=== PATIENT | female | born 1965 | race Caucasian/White ===

== ENCOUNTER 2016-11-27 19:06 | Emergency (ER) | payer OTHER ==
[~2016-11-27 19:06] MED LIST: 'TENORMIN50 MG PO; ABILIFY10 MG PO; ABILIFY15 MG PO; ALAVERT10 M1 PO; ASCRIPTIN1 TAB PO; ASPIR 8181 MG PO; ATENOLOL25 MG PO; ATENOLOL50 MG PO; ATIVAN1 MG PO; Amitriptyline H10 MG PO; B-121000 MCG PO; BENADRYL25 M1 PO; BENADRYL25 MG PO; BENZTROPINE MESY1 MG PO; CLARITIN10 MG PO; COPPERAS1 CRE PO; CYCLOBENZAPRINE10 MG PO; DOCUSATE SODIU100 M2 PO; DOCUSATE100 MG PO; FENOFIBRATE200 MG PO; FERROUS SULFAT325 M1 PO; FERROUS SULFATE; FISH OIL 10001000 MG PO; FLEXERIL5 MG PO; FLONASE0.05 MG/AC NS; FOLIC ACID1 MG PO; GABAPENTIN TAB600 MG PO; GABAPENTIN600 MG PO; GLIPIZIDE5 MG PO; GLUCOTROL XL2.5 MG PO; IRON325 M2 PO; LANSOPRAZOLE30 M1 PO; LANSOPRAZOLE30 MG PO; LANTUS100 U/ML SC; LOMOTIL 0.025 M1 TA1 PO; LOSARTAN POTASS50 M1 PO; LOVASTATIN20 MG PO; LOVASTATIN40 MG PO; LOVAZA1 GM PO; MEDROL DOSEPAK4 MG PO; METFORMIN1000 MG PO; METFORMIN500 MG PO; MULTI VITAMINS1 TAB PO; MULTIPLE VITAMI1 TA3 PO; NEURONTIN300 MG PO; NORFLEX100 MG PO; OXYCONTIN40 MG PO; PANTOPRAZOLE40 MG PO; PEPCID20 MG PO; PERCOCET 325 MG1 TA7 PO; PREDNICOT20 MG PO; PREDNISONE50 MG PO; PRESERVISION A1 EACH PO; PRESERVISION L1 EACH PO; PRESTIQ PO; PREVACID30 M1 PO; PRILOSEC20 MG PO; ROXICODONE30 MG PO; SYNTHROID0.025 MG PO; TOPAMAX25 M1 PO; TOPAMAX50 MG PO; TOPIRAMATE50 MG PO; TORADOL10 MG PO; TRAMADOL HCL50 MG PO; TRICOR48 MG; TRILIPIX45 M1 PO; ULTRAM50 MG PO; VENLAFAXINE37.5 M1 PO; VIBRAMYCIN100 MG PO; VICO10300 PO; VICO75300 PO; VICODIN 500 MG-1 TAB PO; VICODIN HP 6601 TA1 PO; VICOPROFEN 7.51 TA1 PO; VIT D3 PO; VITAMIN B12 1541 TAB PO; VITAMIN D50000 I2 PO; WELLBUTRIN XL300 MG PO; ZANAFLEX4 M1 PO; ZITHROMAX Z PA250 MG PO; ZOFRAN ODT4 MG PO; ZOFRAN ODT4 MG SL; ZOFRAN4 MG PO; ZOLOFT100 MG PO; Zofran4 MG PO
[2016-11-27 19:35] VITALS: BP 139/83
[2016-11-27 19:53] LABS: BILIRUBIN NEGATIVE (NEGATIVE); BLOOD TRACE-LYSED (NEGATIVE); CLARITY CLEAR (CLEAR); COLOR YELLOW (YELLOW); GLUCOSE 3+ (NEGATIVE); KETONE NEGATIVE (NEGATIVE); LEUKO ESTERASE NEGATIVE (NEGATIVE); NITRITE NEGATIVE (NEGATIVE); PH 7.5 (5.0-9.0); PROTEIN NEGATIVE (NEGATIVE); UROBILINOGEN 0.2 E.U./dl (0.2-1.0)
[2016-11-27 19:53] LABS: BASO # 0.1 10*3/uL (0.0-0.1); BASO % 0.8 % (0.0-1.0); EOS # 0.7 10*3/uL (0.0-0.4); EOS % 5.7 % (1.0-4.0); HEMOGLOBIN 15.4 g/dl (12.0-16.0); IG # 0.2 10*3/uL (0.0-0.1); LYMPH # 2.6 10*3/uL (1.3-4.4); LYMPH % 20.7 % (27.0-41.0); MEAN CELL VOLUME 77.6 fl (81.0-99.0); MEAN CORPUSCULAR HGB 27.2 pg (27.0-31.0); MEAN PLATELET VOLUME 8.6 fl (9.6-12.3); MONO # 0.5 10*3/uL (0.1-1.0); MONO % 4.2 % (3.0-9.0); NEUT # 8.5 10*3/uL (2.3-7.9); NEUT % 67.2 % (47.0-73.0); PLATELET COUNT AUTOMATED 242 10*3/uL (130-400); RED BLOOD COUNT 5.67 10*6/uL (4.10-5.10); WHITE BLOOD COUNT 12.7 10*3/uL (4.8-10.8)
[2016-11-27 20:01] LABS: BACTERIA TRACE; URINE REFLEX COMMENT NO (NO); WBC 0-2 wbc/hpf (0-5); YEAST 2+
[2016-11-27 20:07] LABS: C-REACTIVE PROTEIN 1.52 MG/DL (0-0.3)
[2016-11-27 20:08] LABS: ALBUMIN 3.6 gm/dl (3.1-4.5); ALKALINE PHOSPHATASE 115 U/L (45-117); BILIRUBIN, TOTAL 0.4 mg/dl (0.2-1.0); BUN 9 mg/dl (7-24); CARBON DIOXIDE 24 mmol/L (21-32); CHLORIDE 99 mmol/L (98-107); EST GLOM FILT AFRICAN AMERICAN > 60 ml/min; POTASSIUM 4.1 mmol/L (3.5-5.1); SGOT/AST 16 IU/L (3-35); SGPT/ALT 48 U/L (12-78); SODIUM 135 mmol/L (136-145); TOTAL PROTEIN 7.8 gm/dL (6.4-8.2)
[2016-11-27 20:09] LABS: GLUCOSE 413 mg/dL (65-99)
[2016-11-27] MEDS ORDERED: ZOFRAN ODT4 MG SL (20:20)
== END 2016-11-27 20:20 | disposition home or self-care (01) ==
LOC: ED 19:06
PROVIDERS: Nurse Practitioner Family
DX: K29.00 Acute gastritis without bleeding (principal); F17.200 Nicotine dependence, unspecified, uncomplicated; Z98.890 Other specified postprocedural states; Z79.82 Long term (current) use of aspirin; Z88.0 Allergy status to penicillin; Z88.5 Allergy status to narcotic agent; Z88.8 Allergy status to other drugs, medicaments and biological substances; Z88.6 Allergy status to analgesic agent

== ENCOUNTER 2017-07-01 20:27 | Emergency (ER) | payer OTHER ==
[~2017-07-01] VITALS: Ht 172.7 cm; Wt 90.7 kg
[2017-07-01 20:50] LABS: BILIRUBIN NEGATIVE (NEGATIVE); BLOOD TRACE-INTACT (NEGATIVE); CLARITY SL CLOUDY (CLEAR); COLOR YELLOW (YELLOW); GLUCOSE 3+ (NEGATIVE); KETONE NEGATIVE (NEGATIVE); LEUKO ESTERASE NEGATIVE (NEGATIVE); NITRITE NEGATIVE (NEGATIVE); PROTEIN NEGATIVE (NEGATIVE); SPECIFIC GRAVITY 1.015 (1.005-1.030); UROBILINOGEN 0.2 E.U./dl (0.2-1.0)
[2017-07-01 20:56] LABS: WBC 16-20 wbc/hpf (0-5)
[2017-07-01 20:57] LABS: BACTERIA 3+; URINE REFLEX COMMENT YES (NO)
[2017-07-01 21:31] LABS: BASO # 0.1 10*3/uL (0.0-0.1); BASO % 0.5 % (0.0-1.0); EOS # 0.7 10*3/uL (0.0-0.4); HEMATOCRIT 38.4 % (37.0-47.0); HEMOGLOBIN 13.5 g/dl (12.0-16.0); IG # 0.2 10*3/uL (0.0-0.1); LYMPH # 2.2 10*3/uL (1.3-4.4); LYMPH % 20.3 % (27.0-41.0); MEAN CELL VOLUME 78.7 fl (81.0-99.0); MEAN CORPUSCULAR HGB 27.7 pg (27.0-31.0); MEAN CORPUSCULAR HGB CONC 35.2 g/dl (33.0-37.0); MEAN PLATELET VOLUME 8.7 fl (9.6-12.3); MONO # 0.5 10*3/uL (0.1-1.0); MONO % 4.2 % (3.0-9.0); NEUT # 7.4 10*3/uL (2.3-7.9); NEUT % 67.5 % (47.0-73.0); PLATELET COUNT AUTOMATED 256 10*3/uL (130-400); RED BLOOD COUNT 4.88 10*6/uL (4.10-5.10); RED CELL DISTRI WIDTH 15.5 % (0-14.5); WHITE BLOOD COUNT 10.9 10*3/uL (4.8-10.8)
[2017-07-01 21:47] LABS: ALBUMIN 3.5 gm/dl (3.1-4.5); ALKALINE PHOSPHATASE 141 U/L (45-117); BILIRUBIN, TOTAL 0.4 mg/dl (0.2-1.0); BUN 9 mg/dl (7-24); CARBON DIOXIDE 24 mmol/L (21-32); CHLORIDE 99 mmol/L (98-107); EST GLOM FILT AFRICAN AMERICAN > 60 ml/min; GLUCOSE 343 mg/dL (65-99); POTASSIUM 3.4 mmol/L (3.5-5.1); SGOT/AST 28 IU/L (3-35); SODIUM 135 mmol/L (136-145); TOTAL PROTEIN 7.2 gm/dL (6.4-8.2)
[2017-07-01 22:13] LABS: SGPT/ALT 39 U/L (12-78)
[2017-07-01 23:27] LABS: LA>2 REFLEX 2 HR DRAW NOW
[2017-07-01 23:46] VITALS: BP 169/94
== END 2017-07-02 01:25 | disposition home or self-care (01) ==
LOC: ED 20:27
PROVIDERS: Emergency Medicine
DX: R10.31 Right lower quadrant pain (principal); R11.0 Nausea; R63.0 Anorexia; K59.00 Constipation, unspecified; E16.2 Hypoglycemia, unspecified; E87.6 Hypokalemia; K82.9 Disease of gallbladder, unspecified; R74.8 Abnormal levels of other serum enzymes; J44.9 Chronic obstructive pulmonary disease, unspecified; E11.9 Type 2 diabetes mellitus without complications; I10 Essential (primary) hypertension; F17.200 Nicotine dependence, unspecified, uncomplicated; Z88.0 Allergy status to penicillin; Z88.6 Allergy status to analgesic agent; Z88.8 Allergy status to other drugs, medicaments and biological substances; Z79.899 Other long term (current) drug therapy; Z79.82 Long term (current) use of aspirin

== ENCOUNTER → 2017-08-18 | Outpatient (CLI) | payer OTHER | END | disposition home or self-care (01) | LOC: US 07:38 | DX: K76.0 Fatty (change of) liver, not elsewhere classified (principal); K80.20 Calculus of gallbladder without cholecystitis without obstruction ==

== ENCOUNTER 2017-10-19 15:44 | Emergency (ER) | payer OTHER ==
[~2017-10-19] VITALS: Ht 170.1 cm; Wt 90.7 kg
[2017-10-19 15:52] VITALS: BP 162/98
[2017-10-19 16:17] LABS: BASO # 0.1 10*3/uL (0.0-0.1); BASO % 0.5 % (0.0-1.0); EOS # 0.6 10*3/uL (0.0-0.4); EOS % 5.4 % (1.0-4.0); HEMATOCRIT 40.3 % (37.0-47.0); HEMOGLOBIN 13.9 g/dl (12.0-16.0); MEAN CELL VOLUME 77.4 fl (81.0-99.0); MEAN CORPUSCULAR HGB 26.7 pg (27.0-31.0); MEAN CORPUSCULAR HGB CONC 34.5 g/dl (33.0-37.0); MEAN PLATELET VOLUME 8.3 fl (9.6-12.3); MONO # 0.5 10*3/uL (0.1-1.0); MONO % 4.8 % (3.0-9.0); NEUT # 6.5 10*3/uL (2.3-7.9); NEUT % 60.8 % (47.0-73.0); PLATELET COUNT AUTOMATED 260 10*3/uL (130-400); RED BLOOD COUNT 5.21 10*6/uL (4.10-5.10); RED CELL DISTRI WIDTH 14.7 % (0-14.5); WHITE BLOOD COUNT 10.7 10*3/uL (4.8-10.8)
[2017-10-19 16:33] LABS: ALBUMIN 3.8 gm/dl (3.1-4.5); ALKALINE PHOSPHATASE 88 U/L (45-117); BUN 12 mg/dl (7-24); CHLORIDE 105 mmol/L (98-107); CREATININE 0.68 mg/dL (0.55-1.02); LIPASE 182 U/L (73-393); SGOT/AST 20 IU/L (3-35); SGPT/ALT 43 U/L (12-78); SODIUM 138 mmol/L (136-145); TOTAL PROTEIN 7.4 gm/dL (6.4-8.2)
[2017-10-19 16:40] LABS: BILIRUBIN NEGATIVE (NEGATIVE); BLOOD NEGATIVE (NEGATIVE); CLARITY CLEAR (CLEAR); COLOR YELLOW (YELLOW); GLUCOSE NEGATIVE (NEGATIVE); KETONE NEGATIVE (NEGATIVE); LEUKO ESTERASE NEGATIVE (NEGATIVE); NITRITE NEGATIVE (NEGATIVE); UROBILINOGEN 0.2 E.U./dl (0.2-1.0)
[2017-10-19 16:48] LABS: RBC 0-2 rbc/hpf (0-2)
== END 2017-10-19 19:26 | disposition home or self-care (01) ==
LOC: ED 15:44
PROVIDERS: Physician Assistant
DX: R14.0 Abdominal distension (gaseous) (principal); R10.12 Left upper quadrant pain; G89.29 Other chronic pain; F17.200 Nicotine dependence, unspecified, uncomplicated; Z98.890 Other specified postprocedural states; Z79.899 Other long term (current) drug therapy; Z79.82 Long term (current) use of aspirin; Z88.0 Allergy status to penicillin; Z88.5 Allergy status to narcotic agent; Z88.6 Allergy status to analgesic agent; Z88.8 Allergy status to other drugs, medicaments and biological substances

== ENCOUNTER → 2017-12-22 | Outpatient (CLI) | payer OTHER ==
[2017-12-22 13:03] LABS: BASO # 0.1 10*3/uL (0.0-0.1); BASO % 0.5 % (0.0-1.0); EOS # 0.5 10*3/uL (0.0-0.4); EOS % 3.8 % (1.0-4.0); HEMATOCRIT 40.2 % (37.0-47.0); HEMOGLOBIN 13.6 g/dl (12.0-16.0); LYMPH # 4.3 10*3/uL (1.3-4.4); LYMPH % 33.5 % (27.0-41.0); MEAN CELL VOLUME 78.7 fl (81.0-99.0); MEAN CORPUSCULAR HGB 26.6 pg (27.0-31.0); MEAN CORPUSCULAR HGB CONC 33.8 g/dl (33.0-37.0); MEAN PLATELET VOLUME 8.6 fl (9.6-12.3); MONO # 0.5 10*3/uL (0.1-1.0); MONO % 4.1 % (3.0-9.0); NEUT # 7.4 10*3/uL (2.3-7.9); NEUT % 57.6 % (47.0-73.0); PLATELET COUNT AUTOMATED 297 10*3/uL (130-400); RED BLOOD COUNT 5.11 10*6/uL (4.10-5.10); WHITE BLOOD COUNT 12.8 10*3/uL (4.8-10.8)
[2017-12-22 13:41] LABS: ALBUMIN 3.7 gm/dl (3.1-4.5); BILIRUBIN, DIRECT 0.1 mg/dL (0.0-0.2); TOTAL PROTEIN 6.9 gm/dL (6.4-8.2)
== END | disposition home or self-care (01) ==
LOC: LAB 12:46
PROVIDERS: Internal Medicine Gastroenterology
DX: R11.0 Nausea (principal)

== ENCOUNTER 2018-02-10 13:23 | Emergency (ER) | payer OTHER ==
[~2018-02-10] VITALS: Ht 170.1 cm; Wt 91.2 kg
[2018-02-10 13:28] VITALS: BP 140/80
[2018-02-10] MEDS ORDERED: PREDNISONE10 MG PO (13:53)
[2018-02-10] MEDS ORDERED: ROBITUSSIN DM 105 ML PO (13:53)
[2018-02-10] MEDS ORDERED: CLARITIN10 MG PO (13:53)
[2018-02-10] MEDS ORDERED: FLONASE ALLERG9.9 ML NAS (13:53)
== END 2018-02-10 14:50 | disposition home or self-care (01) ==
LOC: ED 13:23
DX: B34.9 Viral infection, unspecified (principal); I10 Essential (primary) hypertension; J44.9 Chronic obstructive pulmonary disease, unspecified; E11.9 Type 2 diabetes mellitus without complications; F17.200 Nicotine dependence, unspecified, uncomplicated; Z88.0 Allergy status to penicillin; Z88.6 Allergy status to analgesic agent; Z88.8 Allergy status to other drugs, medicaments and biological substances; Z79.899 Other long term (current) drug therapy; Z79.82 Long term (current) use of aspirin

== ENCOUNTER 2019-10-14 00:27 | Emergency (ER) | payer OTHER ==
[~2019-10-14] VITALS: Wt 98.4 kg
--- NOTE | ~2019-10-14 | EKG ---
[place], [place] ELECTROCARDIOGRAM REPORT NAME: KERVIN PERALTA UNIT #: [id number] ROOM: DOCTOR: ML DRAFT REPORT BIRTHDATE: [birth year] [facility] Test Date: 2019-10-14 Test Time: 01:36:02 Pat Name: KERVIN PERALTA Department: Room: Gender: F [employer] Work[employer]: FARAZ : 1965 Requested By: EMILY STODDARD Order Number: [id number] Reading MD: Measurements Intervals [place] Rate: 66 P: 39 [place]: 211 QRS: 17 QRSD: 77 T: 13 QT: 409 QTc: 429 Interpretive Statements Sinus rhythm Prolonged [place] interval Baseline wander in lead(s) V3 No previous ECG available for comparison CM:EKGRPT:ELECTROCARDIOGRAM REPORT [id number] EMILY ROMO DRAFT REPORT EMILY STODDARD DO
[2019-10-14 00:27] VITALS: BP 136/81
[~2019-10-14 00:27] MED LIST changes: +ALOGLIPTIN25 MG PO; +CLINDAMYCIN HC300 MG PO; +DOC-Q-LACE100 MG PO; +ERYPED 200200 MG/51 PO; +FENOFIBRATE MI200 MG PO; +FLONASE ALLERG9.9 ML NAS; +INVOKANA100 M1 PO; +MOVANTIK12.5 MG PO; +PREDNISONE10 MG PO; +PRESERVISION A1 EACH OU; +ROBITUSSIN DM 105 ML PO
[2019-10-14 01:46] LABS: BASO # 0.1 10*3/uL (0.0-0.1); BASO % 0.6 % (0.0-1.0); EOS # 0.6 10*3/uL (0.0-0.4); EOS % 4.7 % (1.0-4.0); HEMATOCRIT 41.6 % (37.0-47.0); HEMOGLOBIN 14.3 g/dl (12.0-16.0); LYMPH # 3.6 10*3/uL (1.3-4.4); LYMPH % 28.5 % (27.0-41.0); MEAN CELL VOLUME 80.6 fl (81.0-99.0); MEAN CORPUSCULAR HGB 27.7 pg (27.0-31.0); MEAN CORPUSCULAR HGB CONC 34.4 g/dl (33.0-37.0); MEAN PLATELET VOLUME 8.9 fl (9.6-12.3); MONO # 0.5 10*3/uL (0.1-1.0); MONO % 4.1 % (3.0-9.0); NEUT # 7.6 10*3/uL (2.3-7.9); NEUT % 61.2 % (47.0-73.0); PLATELET COUNT AUTOMATED 243 10*3/uL (130-400); RED BLOOD COUNT 5.16 10*6/uL (4.10-5.10); WHITE BLOOD COUNT 12.5 10*3/uL (4.8-10.8)
[2019-10-14 02:02] LABS: BILIRUBIN NEGATIVE (NEGATIVE); BLOOD NEGATIVE (NEGATIVE); CLARITY CLEAR (CLEAR); COLOR YELLOW (YELLOW); GLUCOSE NEGATIVE (NEGATIVE); KETONE NEGATIVE (NEGATIVE); LEUKO ESTERASE NEGATIVE (NEGATIVE); NITRITE NEGATIVE (NEGATIVE); SPECIFIC GRAVITY 1.015 (1.005-1.030); UROBILINOGEN 0.2 E.U./dl (0.2-1.0)
[2019-10-14 02:03] LABS: ALBUMIN 3.9 gm/dl (3.1-4.5); ALKALINE PHOSPHATASE 60 U/L (45-117); BUN 14 mg/dl (7-24); CHLORIDE 106 mmol/L (98-107); CREATININE 0.85 mg/dL (0.55-1.02); LIPASE 137 U/L (73-393); POTASSIUM 3.7 mmol/L (3.5-5.1); SGOT/AST 15 IU/L (3-35); SGPT/ALT 28 U/L (12-78); SODIUM 139 mmol/L (136-145); TOTAL PROTEIN 7.5 gm/dL (6.4-8.2)
[2019-10-14 02:09] LABS: BACTERIA TRACE
== END 2019-10-14 04:03 | disposition home or self-care (01) ==
LOC: ED 00:27
PROVIDERS: Emergency Medicine
DX: R10.9 Unspecified abdominal pain (principal); J44.9 Chronic obstructive pulmonary disease, unspecified; E11.9 Type 2 diabetes mellitus without complications; I10 Essential (primary) hypertension; K21.9 Gastro-esophageal reflux disease without esophagitis; E78.00 Pure hypercholesterolemia, unspecified; E11.42 Type 2 diabetes mellitus with diabetic polyneuropathy; F17.200 Nicotine dependence, unspecified, uncomplicated; Z88.0 Allergy status to penicillin; Z88.6 Allergy status to analgesic agent; Z88.8 Allergy status to other drugs, medicaments and biological substances; Z79.899 Other long term (current) drug therapy; Z79.82 Long term (current) use of aspirin

== ENCOUNTER → 2020-01-20 | Outpatient (CLI) | payer OTHER ==
[2020-01-20 12:21] LABS: ALBUMIN 3.8 gm/dl (3.1-4.5); BILIRUBIN, DIRECT < 0.1 mg/dL (0.0-0.2); SGOT/AST 10 IU/L (3-35); SGPT/ALT 26 U/L (12-78); TOTAL PROTEIN 7.4 gm/dL (6.4-8.2)
[2020-01-20 12:29] LABS: ALKALINE PHOSPHATASE 70 U/L (45-117)
[2020-01-21 15:05] LABS: t-TRANSGLUTAMINASE (tTG) IGA <2 U/mL (0-3); t-TRANSGLUTAMINASE (tTG) IgG <2 U/mL (0-5)
== END | disposition home or self-care (01) ==
LOC: LAB 11:03
PROVIDERS: Internal Medicine Gastroenterology
DX: R11.0 Nausea (principal); R10.9 Unspecified abdominal pain

== ENCOUNTER 2020-02-12 07:10 | Emergency (ER) | payer OTHER ==
[~2020-02-12] VITALS: Ht 170.1 cm; Wt 92.5 kg
[2020-02-12 07:41] VITALS: BP 136/80
[2020-02-12] MEDS ORDERED: Motrin,Rufen800 MG PO (10:39)
== END 2020-02-12 10:42 | disposition home or self-care (01) ==
LOC: ED 07:10
DX: S99.911A Unspecified injury of right ankle, initial encounter (principal); E78.00 Pure hypercholesterolemia, unspecified; I10 Essential (primary) hypertension; K21.9 Gastro-esophageal reflux disease without esophagitis; F41.9 Anxiety disorder, unspecified; F32.9 Major depressive disorder, single episode, unspecified; E11.9 Type 2 diabetes mellitus without complications; J44.9 Chronic obstructive pulmonary disease, unspecified; E78.5 Hyperlipidemia, unspecified; Z88.5 Allergy status to narcotic agent; Z88.0 Allergy status to penicillin; Z79.899 Other long term (current) drug therapy; Z88.8 Allergy status to other drugs, medicaments and biological substances; Z79.82 Long term (current) use of aspirin; W10.9XXA Fall (on) (from) unspecified stairs and steps, initial encounter; Y93.89 Activity, other specified; Y92.009 Unspecified place in unspecified non-institutional (private) residence as the place of occurrence of the external cause; Y99.8 Other external cause status

== ENCOUNTER 2020-05-12 17:28 | Inpatient (IN) | payer OTHER ==
[~2020-05-12] VITALS: Wt 96.2 kg
[~2020-05-12 17:28] MED LIST changes: +Motrin,Rufen800 MG PO
--- NOTE | 2020-05-12 17:42 | NUR ---
BROUGHT TO ROOM 12 VIA WC FROM CHRISTY, EKG AT BEDSIDE
[2020-05-12 17:44] VITALS: BP 130/66
--- NOTE | 2020-05-12 17:52 | NUR ---
LABS DRAWN WITH IV START AND HANDED TO PHLEBOTOMOST AT BEDSIDE
[2020-05-12] MEDS ORDERED: RA FISH OIL 1,1 EACH PO (17:54)
[2020-05-12] MEDS ORDERED: VENTOLIN 02.5 MG/3 M INH (17:55)
[2020-05-12] MEDS ORDERED: FLOVENT HFA12 G1 INH (17:55)
[2020-05-12] MEDS ORDERED: BASAG SOL SC (17:55)
[2020-05-12] MEDS ORDERED: LACTULOSE10 GM/15 M PO (17:56)
[2020-05-12] MEDS ORDERED: PROVENTIL HFA6.7 GM INH (17:56)
[2020-05-12] MEDS ORDERED: VITAMIN E100 UNI1 PO (17:57)
[2020-05-12 18:05] LABS: BASO # 0.1 10*3/uL (0.0-0.1); BASO % 0.5 % (0.0-1.0); EOS # 0.5 10*3/uL (0.0-0.4); EOS % 3.7 % (1.0-4.0); HEMATOCRIT 41.3 % (37.0-47.0); LYMPH # 2.2 10*3/uL (1.3-4.4); LYMPH % 16.3 % (27.0-41.0); MEAN CELL VOLUME 80.4 fl (81.0-99.0); MEAN CORPUSCULAR HGB 27.2 pg (27.0-31.0); MEAN CORPUSCULAR HGB CONC 33.9 g/dl (33.0-37.0); MEAN PLATELET VOLUME 8.7 fl (9.6-12.3); MONO # 0.7 10*3/uL (0.1-1.0); MONO % 5.3 % (3.0-9.0); NEUT # 9.7 10*3/uL (2.3-7.9); NEUT % 73.4 % (47.0-73.0); PLATELET COUNT AUTOMATED 260 10*3/uL (130-400); RED BLOOD COUNT 5.14 10*6/uL (4.10-5.10); RED CELL DISTRI WIDTH 13.5 % (0-14.5); WHITE BLOOD COUNT 13.3 10*3/uL (4.8-10.8)
[2020-05-12 18:17] LABS: ACT PARTIAL THROMBO TIME 28.2 SECONDS (20.0-32.1)
[2020-05-12 18:22] LABS: ALBUMIN 3.8 gm/dl (3.1-4.5); ALKALINE PHOSPHATASE 65 U/L (45-117); BUN 16 mg/dl (7-24); CHLORIDE 107 mmol/L (98-107); CREATININE 0.82 mg/dL (0.55-1.02); POTASSIUM 3.4 mmol/L (3.5-5.1); SGOT/AST 10 IU/L (3-35); SGPT/ALT 22 U/L (12-78); SODIUM 137 mmol/L (136-145)
[2020-05-12 18:29] LABS: TROPONIN I < 0.015 ng/ml (<0.045)
--- NOTE | 2020-05-12 18:29 | NUR ---
PATIENT HAS NO NEEDS AT THIS TIME. SHE IS WATCHING TV AND TALKING ON HER CELL PHONE.
--- NOTE | 2020-05-12 18:59 | NUR ---
PATIENT WANTS TO GO HOME, DR. AGUILAR AWARE
--- NOTE | 2020-05-12 19:20 | NUR ---
PATIENT STATES AT THIS TIME SHE DOES NOT WANT TO BE ADMITTED AND WANTS TO SIGN OUT AMA. RESIDENT DR SNYDER NOTIFIED OF THIS AT THIS TIME.
--- NOTE | 2020-05-12 19:21 | NUR ---
The patient, KERVIN PERALTA, 55, 65, [id number], [id number], presented to the Emergency Department at 1729. The patient's Chief Complaint was CHEST PAIN. The patient subsequently left "Against Medical Advice" at 1930. Treatment completed included EXAM,VITALS,LABS,EKG,XRAY . Possible complications and consequences of not following medical advice were clearly explained to the patient by Dr. AGUILAR, and RODRIGO NAVARRETE RN. Assessment of the patient's competence, for making the decision to refuse completion of previously requested exam and treatment, includes alert and oriented. Attempts WERE made to get self involved in persuading the patient to accept, TASH Mohr DO, the physician's recommendations. Discussion included SIGNING OUT AMA . The patient's response was LEAVING AMA . Family/friends who witnessed the discussion includes PATIENT . Signatures WERE requested. The patient DID sign the chart; this was witnessed by RODRIGO NAVARRETE RN. The patient's reason for departing, prior to completion of treatment was "refuses to be admitted". The patient's disposition is dc against medical advice, to the care of self. Arrangements have been made for the ED staff to "Call Back" the patient the following day, to inquire about the patient's medical status and encourage KERVIN PERALTA, to seek medical attention, if this has not been completed. RODRIGO NAVARRETE.
== END 2020-05-12 19:46 | disposition left against medical advice (07) | DRG 203 ==
LOC: ED 17:28 → EDHOLD 18:57 → ED 18:59 → EDHOLD 19:17
PROVIDERS: Emergency Medicine; ADMIT Internal Medicine
DX: R07.9 Chest pain, unspecified (principal); Z53.29 Procedure and treatment not carried out because of patient's decision for other reasons; Z88.0 Allergy status to penicillin; Z88.5 Allergy status to narcotic agent; Z88.8 Allergy status to other drugs, medicaments and biological substances; Z82.49 Family history of ischemic heart disease and other diseases of the circulatory system; Z83.3 Family history of diabetes mellitus; Z83.6 Family history of other diseases of the respiratory system; Z79.899 Other long term (current) drug therapy

== ENCOUNTER → 2020-07-29 | Outpatient (CLI) | payer OTHER ==
[~2020-07-29] MED LIST changes: +BASAG SOL SC; +FLOVENT HFA12 G1 INH; +LACTULOSE10 GM/15 M PO; +PROVENTIL HFA6.7 GM INH; +RA FISH OIL 1,1 EACH PO; +VENTOLIN 02.5 MG/3 M INH; +VITAMIN E100 UNI1 PO
== END | disposition home or self-care (01) ==
LOC: RAD 14:19
PROVIDERS: ATTEND Emergency Medicine
DX: M47.812 Spondylosis without myelopathy or radiculopathy, cervical region (principal); M48.02 Spinal stenosis, cervical region; M85.88 Other specified disorders of bone density and structure, other site; M25.78 Osteophyte, vertebrae

== ENCOUNTER 2020-08-09 14:58 | Emergency (ER) | payer OTHER ==
[~2020-08-09] VITALS: Ht 170.1 cm; Wt 93.0 kg
[2020-08-09 15:02] VITALS: BP 156/76
[2020-08-09 16:07] LABS: BASO # 0.1 10*3/uL (0.0-0.1); BASO % 0.6 % (0.0-1.0); EOS # 0.5 10*3/uL (0.0-0.4); EOS % 6.1 % (1.0-4.0); HEMATOCRIT 38.9 % (37.0-47.0); LYMPH # 2.1 10*3/uL (1.3-4.4); LYMPH % 23.8 % (27.0-41.0); MEAN CELL VOLUME 78.1 fl (81.0-99.0); MEAN CORPUSCULAR HGB 26.5 pg (27.0-31.0); MEAN CORPUSCULAR HGB CONC 33.9 g/dl (33.0-37.0); MEAN PLATELET VOLUME 8.6 fl (9.6-12.3); MONO # 0.4 10*3/uL (0.1-1.0); MONO % 4.7 % (3.0-9.0); NEUT # 5.6 10*3/uL (2.3-7.9); NEUT % 64.2 % (47.0-73.0); PLATELET COUNT AUTOMATED 164 10*3/uL (130-400); RED BLOOD COUNT 4.98 10*6/uL (4.10-5.10); RED CELL DISTRI WIDTH 14.5 % (0-14.5); WHITE BLOOD COUNT 8.7 10*3/uL (4.8-10.8)
[2020-08-09] MEDS ORDERED: ZITHROMAX250 MG PO (16:19)
[2020-08-09] MEDS ORDERED: ROBITUSSIN DM 105 ML PO (16:19)
[2020-08-09 16:22] LABS: ALBUMIN 3.5 gm/dl (3.1-4.5); ALKALINE PHOSPHATASE 85 U/L (45-117); BUN 15 mg/dl (7-24); CHLORIDE 108 mmol/L (98-107); CREATININE 0.84 mg/dL (0.55-1.02); POTASSIUM 3.7 mmol/L (3.5-5.1); SGOT/AST 8 IU/L (3-35); SGPT/ALT 24 U/L (12-78); SODIUM 138 mmol/L (136-145); TOTAL PROTEIN 6.9 gm/dL (6.4-8.2)
== END 2020-08-09 16:59 | disposition home or self-care (01) ==
LOC: ED 14:58
PROVIDERS: Nurse Practitioner Family
DX: J20.9 Acute bronchitis, unspecified (principal); F17.200 Nicotine dependence, unspecified, uncomplicated; Z88.0 Allergy status to penicillin; Z88.6 Allergy status to analgesic agent; Z88.8 Allergy status to other drugs, medicaments and biological substances; Z79.899 Other long term (current) drug therapy; Z79.82 Long term (current) use of aspirin; Z79.4 Long term (current) use of insulin

== ENCOUNTER → 2020-10-02 | Outpatient (CLI) | payer OTHER ==
[~2020-10-02] MED LIST changes: +ZITHROMAX250 MG PO
== END | disposition home or self-care (01) ==
LOC: RAD 13:11
PROVIDERS: ATTEND Physician Assistant
DX: M25.561 Pain in right knee (principal)

== ENCOUNTER 2020-11-04 12:46 | Emergency (ER) | payer OTHER ==
[~2020-11-04] VITALS: Ht 170.1 cm; Wt 94.3 kg
[2020-11-04 13:02] VITALS: BP 156/76
[2020-11-04] MEDS ORDERED: MEDROL DOSEPAK4 MG PO (15:08)
== END 2020-11-04 15:19 | disposition home or self-care (01) ==
LOC: ED 12:46
DX: S16.1XXA Strain of muscle, fascia and tendon at neck level, initial encounter (principal); Z88.0 Allergy status to penicillin; Z88.5 Allergy status to narcotic agent; Z88.8 Allergy status to other drugs, medicaments and biological substances; Z79.899 Other long term (current) drug therapy; Z79.4 Long term (current) use of insulin; V89.2XXA Person injured in unspecified motor-vehicle accident, traffic, initial encounter; Y93.89 Activity, other specified; Y92.89 Other specified places as the place of occurrence of the external cause; Y99.8 Other external cause status

== ENCOUNTER → 2021-01-28 | Outpatient (CLI) | payer OTHER ==
[2021-01-28 16:01] LABS: BASO # 0.1 10*3/uL (0.0-0.1); BASO % 0.5 % (0.0-1.0); EOS # 0.6 10*3/uL (0.0-0.4); EOS % 5.5 % (1.0-4.0); HEMATOCRIT 40.1 % (37.0-47.0); LYMPH # 2.9 10*3/uL (1.3-4.4); LYMPH % 26.1 % (27.0-41.0); MEAN CELL VOLUME 79.6 fl (81.0-99.0); MEAN CORPUSCULAR HGB 28.4 pg (27.0-31.0); MEAN CORPUSCULAR HGB CONC 35.7 g/dl (33.0-37.0); MEAN PLATELET VOLUME 8.5 fl (9.6-12.3); MONO # 0.6 10*3/uL (0.1-1.0); MONO % 5.1 % (3.0-9.0); NEUT # 6.8 10*3/uL (2.3-7.9); NEUT % 62.1 % (47.0-73.0); PLATELET COUNT AUTOMATED 206 10*3/uL (130-400); RED BLOOD COUNT 5.04 10*6/uL (4.10-5.10); RED CELL DISTRI WIDTH 14.1 % (0-14.5)
[2021-01-28 16:31] LABS: BODY FLUID WBC 106 /uL
[2021-01-28 17:17] LABS: BF LYMPHOCYTES 9 %; BF MACROPHAGES 87 %; BF NEUTROPHILS 4 %
[2021-01-29 11:07] LABS: ACID FAST SPEC PROCESSING Direct Inoculation (.)
[2021-03-13 07:06] LABS: ACID FAST CULTURE Negative (.)
== END | disposition home or self-care (01) ==
LOC: LAB 12:31 → RAD 12:31
PROVIDERS: ATTEND Orthopaedic Surgery
DX: M17.12 Unilateral primary osteoarthritis, left knee (principal); M16.0 Bilateral primary osteoarthritis of hip; M25.762 Osteophyte, left knee; M25.462 Effusion, left knee; M51.37 Other intervertebral disc degeneration, lumbosacral region; Z98.890 Other specified postprocedural states

== ENCOUNTER 2021-02-27 11:00 | Emergency (ER) | payer OTHER ==
[~2021-02-27] VITALS: Ht 170.1 cm; Wt 91.2 kg
[2021-02-27 11:22] VITALS: BP 147/74
[2021-02-27 12:04] LABS: BASO # 0.1 10*3/uL (0.0-0.1); BASO % 0.8 % (0.0-1.0); EOS # 0.4 10*3/uL (0.0-0.4); EOS % 4.9 % (1.0-4.0); HEMATOCRIT 40.7 % (37.0-47.0); LYMPH # 2.2 10*3/uL (1.3-4.4); LYMPH % 27.8 % (27.0-41.0); MEAN CELL VOLUME 80.3 fl (81.0-99.0); MEAN CORPUSCULAR HGB 28.4 pg (27.0-31.0); MEAN CORPUSCULAR HGB CONC 35.4 g/dl (33.0-37.0); MEAN PLATELET VOLUME 8.5 fl (9.6-12.3); MONO # 0.4 10*3/uL (0.1-1.0); MONO % 5.1 % (3.0-9.0); NEUT # 4.8 10*3/uL (2.3-7.9); NEUT % 60.5 % (47.0-73.0); PLATELET COUNT AUTOMATED 154 10*3/uL (130-400); RED BLOOD COUNT 5.07 10*6/uL (4.10-5.10); RED CELL DISTRI WIDTH 14.6 % (0-14.5); WHITE BLOOD COUNT 7.9 10*3/uL (4.8-10.8)
[2021-02-27 12:20] LABS: ALBUMIN 3.6 gm/dl (3.1-4.5); ALKALINE PHOSPHATASE 84 U/L (45-117); BUN 9 mg/dl (7-24); CHLORIDE 104 mmol/L (98-107); CREATININE 0.74 mg/dL (0.55-1.02); POTASSIUM 3.6 mmol/L (3.5-5.1); SGOT/AST 14 IU/L (3-35); SGPT/ALT 32 U/L (12-78); SODIUM 135 mmol/L (136-145); TOTAL PROTEIN 6.8 gm/dL (6.4-8.2)
== END 2021-02-27 13:23 | disposition home or self-care (01) ==
LOC: ED 11:00
PROVIDERS: Student in an Organized Health Care Education/Training Program
DX: G62.9 Polyneuropathy, unspecified (principal); Z88.0 Allergy status to penicillin; Z88.5 Allergy status to narcotic agent; Z88.8 Allergy status to other drugs, medicaments and biological substances; Z79.899 Other long term (current) drug therapy; Z79.4 Long term (current) use of insulin; Z98.890 Other specified postprocedural states

== ENCOUNTER → 2021-09-02 | Outpatient (CLI) | payer OTHER | END | disposition home or self-care (01) | LOC: RAD 11:27 | PROVIDERS: ATTEND Physician Assistant | DX: M25.78 Osteophyte, vertebrae (principal); M54.6 Pain in thoracic spine ==

== ENCOUNTER → 2022-05-23 | Outpatient (CLI) | payer OTHER | END | disposition home or self-care (01) | LOC: RAD 16:30 | PROVIDERS: ATTEND Physician Assistant | DX: M47.812 Spondylosis without myelopathy or radiculopathy, cervical region (principal); M48.02 Spinal stenosis, cervical region; M25.78 Osteophyte, vertebrae ==

== ENCOUNTER 2023-03-09 16:31 | Emergency (ER) | payer OTHER ==
[~2023-03-09] VITALS: Ht 170.1 cm; Wt 93.4 kg
[2023-03-09 16:43] VITALS: BP 116/59
[2023-03-09 17:14] LABS: BASO % 0.1 % (0.0-1.0); EOS # 0.1 10*3/uL (0.0-0.4); EOS % 0.9 % (1.0-4.0); HEMATOCRIT 38.7 % (37.0-47.0); LYMPH # 0.5 10*3/uL (1.3-4.4); LYMPH % 6.5 % (27.0-41.0); MEAN CELL VOLUME 81.5 fl (81.0-99.0); MEAN CORPUSCULAR HGB 27.6 pg (27.0-31.0); MEAN CORPUSCULAR HGB CONC 33.9 g/dl (33.0-37.0); MEAN PLATELET VOLUME 9.1 fl (9.6-12.3); MONO # 0.3 10*3/uL (0.1-1.0); MONO % 3.7 % (3.0-9.0); NEUT # 6.9 10*3/uL (2.3-7.9); NEUT % 87.8 % (47.0-73.0); PLATELET COUNT AUTOMATED 130 10*3/uL (130-400); RED BLOOD COUNT 4.75 10*6/uL (4.10-5.10); RED CELL DISTRI WIDTH 14.2 % (0-14.5); WHITE BLOOD COUNT 7.8 10*3/uL (4.8-10.8)
[2023-03-09 17:23] LABS: ALKALINE PHOSPHATASE 78 U/L (46-116); BUN 14 mg/dl (9-23); CHLORIDE 100 mmol/L (98-107); POTASSIUM 3.8 mmol/L (3.4-5.1); SGPT/ALT 21 U/L (10-49); TOTAL PROTEIN 6.1 gm/dL (6.0-8.0)
[2023-03-09 17:48] LABS: BILIRUBIN Negative (Negative); BLOOD Negative (Negative); CLARITY Clear (Clear); COLOR Yellow (Yellow); GLUCOSE 3+ (Negative); KETONE Negative (Negative); LEUKO ESTERASE Negative (Negative); NITRITE Negative (Negative); PH 5.5 (4.5-8.0); SPECIFIC GRAVITY >= 1.030 (1.001-1.030)
[2023-03-09 17:57] LABS: BACTERIA TRACE; MUCOUS 1+; WBC 0-2 wbc/hpf (0-5)
== END 2023-03-09 23:29 | disposition home or self-care (01) ==
LOC: ED 16:31
PROVIDERS: Emergency Medicine
DX: E11.65 Type 2 diabetes mellitus with hyperglycemia (principal); F17.200 Nicotine dependence, unspecified, uncomplicated; Z79.899 Other long term (current) drug therapy; Z88.0 Allergy status to penicillin; Z88.8 Allergy status to other drugs, medicaments and biological substances

== ENCOUNTER → 2023-04-20 | Outpatient (CLI) | payer OTHER | END | disposition home or self-care (01) | LOC: WOUNDCARE 01:29 | PROVIDERS: ATTEND Nurse Practitioner Family | DX: T25.321A Burn of third degree of right foot, initial encounter (principal); T31.0 Burns involving less than 10% of body surface; E11.9 Type 2 diabetes mellitus without complications; E78.49 Other hyperlipidemia; E03.8 Other specified hypothyroidism; I87.2 Venous insufficiency (chronic) (peripheral); E78.5 Hyperlipidemia, unspecified; E03.9 Hypothyroidism, unspecified; F17.200 Nicotine dependence, unspecified, uncomplicated; Z79.84 Long term (current) use of oral hypoglycemic drugs; Z71.6 Tobacco abuse counseling; Z79.82 Long term (current) use of aspirin; X08.8XXD Exposure to other specified smoke, fire and flames, subsequent encounter ==

== ENCOUNTER → 2023-04-27 | Outpatient (CLI) | payer OTHER | LOC: WOUNDCARE 00:36 | PROVIDERS: ATTEND Nurse Practitioner Family | DX: T25.321D Burn of third degree of right foot, subsequent encounter (principal); E78.49 Other hyperlipidemia; E03.8 Other specified hypothyroidism; I10 Essential (primary) hypertension; I87.2 Venous insufficiency (chronic) (peripheral); F17.200 Nicotine dependence, unspecified, uncomplicated; Z71.6 Tobacco abuse counseling; X08.8XXD Exposure to other specified smoke, fire and flames, subsequent encounter ==

== ENCOUNTER → 2023-05-02 | Outpatient (CLI) | payer OTHER | END | disposition home or self-care (01) | LOC: US 08:00 | PROVIDERS: ATTEND Nurse Practitioner Family | DX: I87.2 Venous insufficiency (chronic) (peripheral) (principal); E11.621 Type 2 diabetes mellitus with foot ulcer ==

== ENCOUNTER → 2023-05-04 | Outpatient (CLI) | payer OTHER | END | disposition home or self-care (01) | LOC: WOUNDCARE | PROVIDERS: ATTEND Nurse Practitioner Family | DX: T25.321D Burn of third degree of right foot, subsequent encounter (principal); T31.0 Burns involving less than 10% of body surface; E78.49 Other hyperlipidemia; E03.8 Other specified hypothyroidism; I87.2 Venous insufficiency (chronic) (peripheral); F17.200 Nicotine dependence, unspecified, uncomplicated; Z71.6 Tobacco abuse counseling; X08.8XXD Exposure to other specified smoke, fire and flames, subsequent encounter ==

== ENCOUNTER → 2023-05-11 | Outpatient (CLI) | payer OTHER | END | disposition home or self-care (01) | LOC: WOUNDCARE 02:37 | PROVIDERS: ATTEND Nurse Practitioner Family | DX: T25.321D Burn of third degree of right foot, subsequent encounter (principal); T31.0 Burns involving less than 10% of body surface; I87.2 Venous insufficiency (chronic) (peripheral); E78.49 Other hyperlipidemia; E03.9 Hypothyroidism, unspecified; F17.200 Nicotine dependence, unspecified, uncomplicated; Z71.6 Tobacco abuse counseling; X08.8XXD Exposure to other specified smoke, fire and flames, subsequent encounter ==

== ENCOUNTER → 2023-05-26 | Outpatient (CLI) | payer OTHER | END | disposition home or self-care (01) | LOC: WOUNDCARE 00:26 | PROVIDERS: ATTEND Nurse Practitioner Family | DX: T25.321D Burn of third degree of right foot, subsequent encounter (principal); T31.0 Burns involving less than 10% of body surface; E78.49 Other hyperlipidemia; I87.2 Venous insufficiency (chronic) (peripheral); F17.210 Nicotine dependence, cigarettes, uncomplicated; Z71.6 Tobacco abuse counseling; E03.8 Other specified hypothyroidism; X08.8XXD Exposure to other specified smoke, fire and flames, subsequent encounter ==

== ENCOUNTER → 2023-06-01 | Outpatient (CLI) | payer OTHER | END | disposition home or self-care (01) | LOC: WOUNDCARE 02:20 | PROVIDERS: ATTEND Nurse Practitioner Family | DX: T25.321D Burn of third degree of right foot, subsequent encounter (principal); T31.0 Burns involving less than 10% of body surface; I87.2 Venous insufficiency (chronic) (peripheral); E78.49 Other hyperlipidemia; E03.8 Other specified hypothyroidism; F17.200 Nicotine dependence, unspecified, uncomplicated; Z71.6 Tobacco abuse counseling; X58.XXXD Exposure to other specified factors, subsequent encounter ==

== ENCOUNTER → 2023-06-07 | Outpatient (CLI) | payer OTHER | END | disposition home or self-care (01) | LOC: WOUNDCARE 00:21 | PROVIDERS: ATTEND Nurse Practitioner Family | DX: T25.321D Burn of third degree of right foot, subsequent encounter (principal); T31.0 Burns involving less than 10% of body surface; E11.9 Type 2 diabetes mellitus without complications; E78.49 Other hyperlipidemia; E03.8 Other specified hypothyroidism; I87.2 Venous insufficiency (chronic) (peripheral); F17.200 Nicotine dependence, unspecified, uncomplicated; Z71.6 Tobacco abuse counseling; X08.8XXD Exposure to other specified smoke, fire and flames, subsequent encounter ==

== ENCOUNTER → 2023-06-13 | Outpatient (CLI) | payer OTHER | LOC: WOUNDCARE 08:13 | PROVIDERS: ATTEND Nurse Practitioner Family | DX: T25.321D Burn of third degree of right foot, subsequent encounter (principal); T31.0 Burns involving less than 10% of body surface; L84 Corns and callosities; E11.9 Type 2 diabetes mellitus without complications; E78.49 Other hyperlipidemia; E03.8 Other specified hypothyroidism; I87.2 Venous insufficiency (chronic) (peripheral); E03.9 Hypothyroidism, unspecified; F17.200 Nicotine dependence, unspecified, uncomplicated; Z71.6 Tobacco abuse counseling; X08.8XXD Exposure to other specified smoke, fire and flames, subsequent encounter ==

== ENCOUNTER → 2023-06-22 | Outpatient (CLI) | payer OTHER ==
[~2023-06-22] MED LIST changes: +DOXYCYCLINE HY100 M3 PO; +FEROSUL325 M1 PO; +FUROSEMIDE20 M1 PO; +GLYBURIDE5 MG PO; +HYDROCODONE-AC1 EACH PO; +METOPROLOL SUCC25 M2 PO; +OMEPRAZOLE40 MG PO; +TIZANIDINE HCL4 MG PO; +VICTOZA 2-0.6 MG/0.1 SC
== END | disposition home or self-care (01) ==
LOC: WOUNDCARE 02:12
PROVIDERS: ATTEND Nurse Practitioner Family
DX: T25.321D Burn of third degree of right foot, subsequent encounter (principal); T31.0 Burns involving less than 10% of body surface; L84 Corns and callosities; E11.9 Type 2 diabetes mellitus without complications; E78.49 Other hyperlipidemia; E03.8 Other specified hypothyroidism; I87.2 Venous insufficiency (chronic) (peripheral); F17.200 Nicotine dependence, unspecified, uncomplicated; Z71.6 Tobacco abuse counseling; X08.8XXD Exposure to other specified smoke, fire and flames, subsequent encounter

== ENCOUNTER 2023-06-25 17:14 | Emergency (ER) | payer OTHER ==
[~2023-06-25] VITALS: Ht 170.1 cm; Wt 95.3 kg
[~2023-06-25 17:14] MED LIST changes: -DOXYCYCLINE HY100 M3 PO; -FEROSUL325 M1 PO; -FUROSEMIDE20 M1 PO; -GLYBURIDE5 MG PO; -HYDROCODONE-AC1 EACH PO; -METOPROLOL SUCC25 M2 PO; -OMEPRAZOLE40 MG PO; -TIZANIDINE HCL4 MG PO; -VICTOZA 2-0.6 MG/0.1 SC
[2023-06-25] MEDS ORDERED: GLYBURIDE5 MG PO (17:49)
[2023-06-25] MEDS ORDERED: VICTOZA 2-0.6 MG/0.1 SC (17:50)
[2023-06-25 18:21] VITALS: BP 126/73
[2023-06-25 18:39] LABS: BILIRUBIN Negative (Negative); BLOOD Negative (Negative); CLARITY Clear (Clear); COLOR Yellow (Yellow); GLUCOSE 1+ (Negative); KETONE Trace (Negative); LEUKO ESTERASE Negative (Negative); NITRITE Negative (Negative)
[2023-06-25 18:55] LABS: BACTERIA TRACE
[2023-06-25 19:16] LABS: BASO # 0.1 10*3/uL (0.0-0.1); BASO % 0.6 % (0.0-1.0); EOS # 0.6 10*3/uL (0.0-0.4); HEMATOCRIT 40.9 % (37.0-47.0); LYMPH # 2.4 10*3/uL (1.3-4.4); LYMPH % 21.6 % (27.0-41.0); MEAN CELL VOLUME 80.8 fl (81.0-99.0); MEAN CORPUSCULAR HGB 28.3 pg (27.0-31.0); MEAN PLATELET VOLUME 8.7 fl (9.6-12.3); MONO # 0.5 10*3/uL (0.1-1.0); MONO % 4.2 % (3.0-9.0); NEUT # 7.4 10*3/uL (2.3-7.9); NEUT % 67.5 % (47.0-73.0); PLATELET COUNT AUTOMATED 166 10*3/uL (130-400); RED BLOOD COUNT 5.06 10*6/uL (4.10-5.10); RED CELL DISTRI WIDTH 14.6 % (0-14.5); WHITE BLOOD COUNT 10.9 10*3/uL (4.8-10.8)
[2023-06-25 19:28] LABS: ACT PARTIAL THROMBO TIME 25.9 SECONDS (20.0-32.1); INTERNATIONAL NORM RATIO 0.9 (2.0-3.5)
[2023-06-25 19:38] LABS: ALKALINE PHOSPHATASE 95 U/L (46-116); BUN 7 mg/dl (9-23); CHLORIDE 102 mmol/L (98-107); LIPASE 43 U/L (12-53); POTASSIUM 3.7 mmol/L (3.4-5.1); SGPT/ALT 21 U/L (10-49); TOTAL PROTEIN 6.8 gm/dL (6.0-8.0)
[2023-06-27] MEDS ORDERED: TIZANIDINE HCL4 MG PO (09:59)
[2023-06-27] MEDS ORDERED: FEROSUL325 M1 PO (09:59)
[2023-06-27] MEDS ORDERED: FUROSEMIDE20 M1 PO (10:00)
[2023-06-27] MEDS ORDERED: METOPROLOL SUCC25 M2 PO (10:00)
[2023-06-27] MEDS ORDERED: OMEPRAZOLE40 MG PO (10:01)
[2023-06-27] MEDS ORDERED: HYDROCODONE-AC1 EACH PO (20:39)
[2023-06-29] MEDS ORDERED: DOXYCYCLINE HY100 M3 PO (09:31)
== END 2023-06-25 20:54 | disposition home or self-care (01) ==
LOC: ED 17:14
PROVIDERS: Internal Medicine
DX: S90.922A Unspecified superficial injury of left foot, initial encounter (principal); E11.65 Type 2 diabetes mellitus with hyperglycemia; K21.9 Gastro-esophageal reflux disease without esophagitis; F41.9 Anxiety disorder, unspecified; I10 Essential (primary) hypertension; F32.A Depression, unspecified; E78.00 Pure hypercholesterolemia, unspecified; E11.40 Type 2 diabetes mellitus with diabetic neuropathy, unspecified; J45.909 Unspecified asthma, uncomplicated; Z88.0 Allergy status to penicillin; Z88.5 Allergy status to narcotic agent; Z88.6 Allergy status to analgesic agent; Z88.8 Allergy status to other drugs, medicaments and biological substances; Z98.890 Other specified postprocedural states; F17.200 Nicotine dependence, unspecified, uncomplicated; X58.XXXA Exposure to other specified factors, initial encounter; Y93.89 Activity, other specified; Y92.89 Other specified places as the place of occurrence of the external cause; Y99.8 Other external cause status

== ENCOUNTER → 2023-06-27 | Outpatient (CLI) | payer OTHER ==
[~2023-06-27] MED LIST changes: +DOXYCYCLINE HY100 M3 PO; +FEROSUL325 M1 PO; +FUROSEMIDE20 M1 PO; +GLYBURIDE5 MG PO; +HYDROCODONE-AC1 EACH PO; +METOPROLOL SUCC25 M2 PO; +OMEPRAZOLE40 MG PO; +TIZANIDINE HCL4 MG PO; +VICTOZA 2-0.6 MG/0.1 SC
== END | disposition home or self-care (01) ==
LOC: WOUNDCARE 01:02
PROVIDERS: ATTEND Nurse Practitioner Family
DX: S90.822A Blister (nonthermal), left foot, initial encounter (principal); T25.321D Burn of third degree of right foot, subsequent encounter; T31.0 Burns involving less than 10% of body surface; L03.116 Cellulitis of left lower limb; E11.9 Type 2 diabetes mellitus without complications; E78.49 Other hyperlipidemia; I87.2 Venous insufficiency (chronic) (peripheral); E03.8 Other specified hypothyroidism; F17.200 Nicotine dependence, unspecified, uncomplicated; X08.8XXD Exposure to other specified smoke, fire and flames, subsequent encounter

== ENCOUNTER → 2023-06-29 | Outpatient (CLI) | payer OTHER | LOC: WOUNDCARE 00:58 | PROVIDERS: ATTEND Nurse Practitioner Family | DX: Z53.21 Procedure and treatment not carried out due to patient leaving prior to being seen by health care provider (principal) ==

== ENCOUNTER → 2023-07-03 | Outpatient (CLI) | payer OTHER | END | disposition home or self-care (01) | LOC: WOUNDCARE 02:08 | PROVIDERS: ATTEND Nurse Practitioner Primary Care | DX: S90.822D Blister (nonthermal), left foot, subsequent encounter (principal); L03.116 Cellulitis of left lower limb; L92.9 Granulomatous disorder of the skin and subcutaneous tissue, unspecified; E11.9 Type 2 diabetes mellitus without complications; E78.49 Other hyperlipidemia; E03.8 Other specified hypothyroidism; F17.200 Nicotine dependence, unspecified, uncomplicated; X58.XXXD Exposure to other specified factors, subsequent encounter ==

== ENCOUNTER → 2023-07-10 | Outpatient (CLI) | payer OTHER | END | disposition home or self-care (01) | LOC: WOUNDCARE 02:40 | PROVIDERS: ATTEND Nurse Practitioner Family | DX: S90.425D Blister (nonthermal), left lesser toe(s), subsequent encounter (principal); E11.621 Type 2 diabetes mellitus with foot ulcer; L97.522 Non-pressure chronic ulcer of other part of left foot with fat layer exposed; L84 Corns and callosities; L03.116 Cellulitis of left lower limb; L92.9 Granulomatous disorder of the skin and subcutaneous tissue, unspecified; E78.49 Other hyperlipidemia; E03.8 Other specified hypothyroidism; F17.200 Nicotine dependence, unspecified, uncomplicated; X58.XXXD Exposure to other specified factors, subsequent encounter ==

== ENCOUNTER → 2023-07-18 | Outpatient (CLI) | payer OTHER | END | disposition home or self-care (01) | LOC: WOUNDCARE 00:34 | PROVIDERS: ATTEND Nurse Practitioner Family | DX: S90.822D Blister (nonthermal), left foot, subsequent encounter (principal); E78.49 Other hyperlipidemia; E03.8 Other specified hypothyroidism; L03.116 Cellulitis of left lower limb; E11.621 Type 2 diabetes mellitus with foot ulcer; L97.522 Non-pressure chronic ulcer of other part of left foot with fat layer exposed; L92.9 Granulomatous disorder of the skin and subcutaneous tissue, unspecified; F17.200 Nicotine dependence, unspecified, uncomplicated; X58.XXXD Exposure to other specified factors, subsequent encounter ==

== ENCOUNTER → 2023-07-27 | Outpatient (CLI) | payer OTHER | END | disposition home or self-care (01) | LOC: WOUNDCARE 01:38 | PROVIDERS: ATTEND Nurse Practitioner Family | DX: S90.822D Blister (nonthermal), left foot, subsequent encounter (principal); E11.621 Type 2 diabetes mellitus with foot ulcer; L97.522 Non-pressure chronic ulcer of other part of left foot with fat layer exposed; L03.116 Cellulitis of left lower limb; L92.9 Granulomatous disorder of the skin and subcutaneous tissue, unspecified; E78.49 Other hyperlipidemia; E03.8 Other specified hypothyroidism; F17.200 Nicotine dependence, unspecified, uncomplicated; X58.XXXD Exposure to other specified factors, subsequent encounter ==

== ENCOUNTER → 2023-08-04 | Outpatient (CLI) | payer OTHER | END | disposition home or self-care (01) | LOC: WOUNDCARE 01:00 | PROVIDERS: ATTEND Nurse Practitioner Family | DX: S90.425D Blister (nonthermal), left lesser toe(s), subsequent encounter (principal); E11.621 Type 2 diabetes mellitus with foot ulcer; L97.522 Non-pressure chronic ulcer of other part of left foot with fat layer exposed; L92.9 Granulomatous disorder of the skin and subcutaneous tissue, unspecified; L03.116 Cellulitis of left lower limb; E03.8 Other specified hypothyroidism; E78.49 Other hyperlipidemia; F17.200 Nicotine dependence, unspecified, uncomplicated; X58.XXXD Exposure to other specified factors, subsequent encounter ==

== ENCOUNTER → 2023-08-07 | Outpatient (CLI) | payer OTHER | END | disposition home or self-care (01) | LOC: WOUNDCARE 01:40 | PROVIDERS: ATTEND Nurse Practitioner Family | DX: E11.621 Type 2 diabetes mellitus with foot ulcer (principal); L97.522 Non-pressure chronic ulcer of other part of left foot with fat layer exposed; S90.425D Blister (nonthermal), left lesser toe(s), subsequent encounter; L03.116 Cellulitis of left lower limb; L92.9 Granulomatous disorder of the skin and subcutaneous tissue, unspecified; E03.8 Other specified hypothyroidism; E78.5 Hyperlipidemia, unspecified; E78.49 Other hyperlipidemia; F17.200 Nicotine dependence, unspecified, uncomplicated; X58.XXXD Exposure to other specified factors, subsequent encounter ==

== ENCOUNTER → 2024-03-07 | Outpatient (CLI) | payer OTHER ==
[~2024-03-07] MED LIST changes: +GADOTERATE MEGLUMINE 10 MMOL/20 ML VIAL IV ONE
[2024-03-07 11:41] LABS: BASO # 0.1 10*3/uL (0.0-0.1); BASO % 0.8 % (0.0-1.0); EOS # 0.5 10*3/uL (0.0-0.4); EOS % 4.6 % (1.0-4.0); HEMATOCRIT 41.7 % (37.0-47.0); LYMPH # 2.1 10*3/uL (1.3-4.4); LYMPH % 20.4 % (27.0-41.0); MEAN CELL VOLUME 83.1 fl (81.0-99.0); MEAN CORPUSCULAR HGB 28.1 pg (27.0-31.0); MEAN CORPUSCULAR HGB CONC 33.8 g/dl (33.0-37.0); MEAN PLATELET VOLUME 8.4 fl (9.6-12.3); MONO # 0.5 10*3/uL (0.1-1.0); MONO % 4.4 % (3.0-9.0); NEUT # 7.2 10*3/uL (2.3-7.9); NEUT % 68.8 % (47.0-73.0); PLATELET COUNT AUTOMATED 171 10*3/uL (130-400); RED BLOOD COUNT 5.02 10*6/uL (4.10-5.10); RED CELL DISTRI WIDTH 14.6 % (0-14.5); WHITE BLOOD COUNT 10.4 10*3/uL (4.8-10.8)
[2024-03-07 12:14] LABS: ALKALINE PHOSPHATASE 70 U/L (46-116); BUN 16 mg/dl (9-23); CHLORIDE 105 mmol/L (98-107); SGPT/ALT 29 U/L (5-49); TOTAL PROTEIN 7.4 gm/dL (6.0-8.0)
[2024-03-08 11:08] LABS: ANGIOTENSIN-CONVERTING ENZYME 29 U/L (14-82)
== END | disposition home or self-care (01) ==
LOC: LAB 00:32 → MRI 00:32
PROVIDERS: ATTEND Ophthalmology
DX: H47.092 Other disorders of optic nerve, not elsewhere classified, left eye (principal); H74.8X3 Other specified disorders of middle ear and mastoid, bilateral

== ENCOUNTER 2024-04-25 22:26 | Emergency (ER) | payer OTHER ==
[~2024-04-25] VITALS: Ht 170.1 cm; Wt 97.5 kg
[~2024-04-25 22:26] MED LIST changes: -GADOTERATE MEGLUMINE 10 MMOL/20 ML VIAL IV ONE
[2024-04-25 22:38] VITALS: BP 155/82
[2024-04-25] MEDS ORDERED: LANTUS SOL100 UNIT/1 SC (22:40)
[2024-04-25] MEDS ORDERED: Tdap Vaccine 0.5 ML SYR (Adult Vaccine) IM ONE (22:50)
[2024-04-25] MEDS ORDERED: Doxycycline Hyclate 100 MG CAP PO ONE (22:50)
[2024-04-25] MEDS ORDERED: VIBRAMYCIN100 MG PO (23:23)
== END 2024-04-25 23:31 | disposition home or self-care (01) ==
LOC: ED 22:26
DX: S61.452A Open bite of left hand, initial encounter (principal); F17.200 Nicotine dependence, unspecified, uncomplicated; Z88.5 Allergy status to narcotic agent; Z88.8 Allergy status to other drugs, medicaments and biological substances; Z88.0 Allergy status to penicillin; Z88.6 Allergy status to analgesic agent; Z98.890 Other specified postprocedural states; Z90.49 Acquired absence of other specified parts of digestive tract; W54.0XXA Bitten by dog, initial encounter; Y93.89 Activity, other specified; Y92.89 Other specified places as the place of occurrence of the external cause; Y99.8 Other external cause status

== ENCOUNTER → 2024-04-29 | Outpatient (CLI) | payer OTHER ==
[~2024-04-29] MED LIST changes: +LANTUS SOL100 UNIT/1 SC
== END | disposition home or self-care (01) ==
LOC: WOUNDCARE 00:43
PROVIDERS: ATTEND Nurse Practitioner Primary Care
DX: S61.452A Open bite of left hand, initial encounter (principal); S61.402A Unspecified open wound of left hand, initial encounter; E11.9 Type 2 diabetes mellitus without complications; I50.9 Heart failure, unspecified; E78.5 Hyperlipidemia, unspecified; E03.9 Hypothyroidism, unspecified; J44.9 Chronic obstructive pulmonary disease, unspecified; F17.290 Nicotine dependence, other tobacco product, uncomplicated; Z79.84 Long term (current) use of oral hypoglycemic drugs; Z79.4 Long term (current) use of insulin; Z79.82 Long term (current) use of aspirin; Z79.899 Other long term (current) drug therapy; W54.0XXA Bitten by dog, initial encounter; Y93.89 Activity, other specified; Y92.89 Other specified places as the place of occurrence of the external cause; Y99.8 Other external cause status

== ENCOUNTER 2024-07-13 15:43 | Emergency (ER) | payer OTHER ==
[~2024-07-13] VITALS: Ht 170.1 cm; Wt 93.0 kg
[2024-07-13 15:55] VITALS: BP 108/56
[2024-07-13] MEDS ORDERED: PREDNISONE50 MG PO (16:12)
[2024-07-13] MEDS ORDERED: methylPREDNISolone sod succ 125 MG VIAL IM ONE (16:15)
[2024-07-13] MEDS ORDERED: Ketorolac Tromethamine 30 MG/ML VIAL IM ONE (16:15)
== END 2024-07-13 16:40 | disposition home or self-care (01) ==
LOC: ED 15:43
DX: M54.41 Lumbago with sciatica, right side (principal); M25.561 Pain in right knee; K21.9 Gastro-esophageal reflux disease without esophagitis; F41.9 Anxiety disorder, unspecified; I10 Essential (primary) hypertension; F32.A Depression, unspecified; E78.00 Pure hypercholesterolemia, unspecified; J45.909 Unspecified asthma, uncomplicated; E11.40 Type 2 diabetes mellitus with diabetic neuropathy, unspecified; F17.200 Nicotine dependence, unspecified, uncomplicated; Z88.5 Allergy status to narcotic agent; Z88.6 Allergy status to analgesic agent; Z88.0 Allergy status to penicillin; Z88.8 Allergy status to other drugs, medicaments and biological substances; Z98.890 Other specified postprocedural states; Z90.49 Acquired absence of other specified parts of digestive tract

== ENCOUNTER → 2025-01-14 | Outpatient (CLI) | payer OTHER | END | disposition home or self-care (01) | LOC: WOUNDCARE 14:21 | PROVIDERS: ATTEND Nurse Practitioner Family | DX: E11.621 Type 2 diabetes mellitus with foot ulcer (principal); L97.411 Non-pressure chronic ulcer of right heel and midfoot limited to breakdown of skin; L97.511 Non-pressure chronic ulcer of other part of right foot limited to breakdown of skin; E11.41 Type 2 diabetes mellitus with diabetic mononeuropathy; E78.5 Hyperlipidemia, unspecified; E03.9 Hypothyroidism, unspecified; I50.9 Heart failure, unspecified; J44.9 Chronic obstructive pulmonary disease, unspecified; K21.9 Gastro-esophageal reflux disease without esophagitis; G60.9 Hereditary and idiopathic neuropathy, unspecified; R60.0 Localized edema; F17.210 Nicotine dependence, cigarettes, uncomplicated; Z98.890 Other specified postprocedural states; Z79.84 Long term (current) use of oral hypoglycemic drugs; Z79.4 Long term (current) use of insulin; Z79.82 Long term (current) use of aspirin; Z79.899 Other long term (current) drug therapy ==

== ENCOUNTER → 2025-01-21 | Outpatient (CLI) | payer OTHER | END | disposition home or self-care (01) | LOC: WOUNDCARE 01:43 | PROVIDERS: ATTEND Nurse Practitioner Family | DX: E11.621 Type 2 diabetes mellitus with foot ulcer (principal); L97.412 Non-pressure chronic ulcer of right heel and midfoot with fat layer exposed; L97.511 Non-pressure chronic ulcer of other part of right foot limited to breakdown of skin; T25.221D Burn of second degree of right foot, subsequent encounter; T31.0 Burns involving less than 10% of body surface; I11.0 Hypertensive heart disease with heart failure; I50.9 Heart failure, unspecified; G60.9 Hereditary and idiopathic neuropathy, unspecified; E03.9 Hypothyroidism, unspecified; E78.5 Hyperlipidemia, unspecified; K21.9 Gastro-esophageal reflux disease without esophagitis; J44.9 Chronic obstructive pulmonary disease, unspecified; F17.210 Nicotine dependence, cigarettes, uncomplicated; Z98.890 Other specified postprocedural states; Z79.84 Long term (current) use of oral hypoglycemic drugs; Z79.82 Long term (current) use of aspirin; Z79.4 Long term (current) use of insulin; Z79.899 Other long term (current) drug therapy; X08.8XXD Exposure to other specified smoke, fire and flames, subsequent encounter ==

== ENCOUNTER → 2025-01-28 | Outpatient (CLI) | payer OTHER | END | disposition home or self-care (01) | LOC: WOUNDCARE 01:58 | PROVIDERS: ATTEND Nurse Practitioner Family | DX: E11.621 Type 2 diabetes mellitus with foot ulcer (principal); L97.412 Non-pressure chronic ulcer of right heel and midfoot with fat layer exposed; R60.9 Edema, unspecified; T25.221D Burn of second degree of right foot, subsequent encounter; T31.0 Burns involving less than 10% of body surface; I11.0 Hypertensive heart disease with heart failure; I50.9 Heart failure, unspecified; E03.9 Hypothyroidism, unspecified; E78.5 Hyperlipidemia, unspecified; G60.9 Hereditary and idiopathic neuropathy, unspecified; J44.9 Chronic obstructive pulmonary disease, unspecified; K21.9 Gastro-esophageal reflux disease without esophagitis; F17.210 Nicotine dependence, cigarettes, uncomplicated; Z98.890 Other specified postprocedural states; Z79.84 Long term (current) use of oral hypoglycemic drugs; Z79.82 Long term (current) use of aspirin; Z79.4 Long term (current) use of insulin; Z79.899 Other long term (current) drug therapy; X08.8XXD Exposure to other specified smoke, fire and flames, subsequent encounter ==

== ENCOUNTER → 2025-02-04 | Outpatient (CLI) | payer OTHER | END | disposition home or self-care (01) | LOC: WOUNDCARE 01:16 | PROVIDERS: ATTEND Nurse Practitioner Family | DX: E11.621 Type 2 diabetes mellitus with foot ulcer (principal); L97.411 Non-pressure chronic ulcer of right heel and midfoot limited to breakdown of skin; T25.221D Burn of second degree of right foot, subsequent encounter; T31.0 Burns involving less than 10% of body surface; I11.0 Hypertensive heart disease with heart failure; I50.9 Heart failure, unspecified; E11.40 Type 2 diabetes mellitus with diabetic neuropathy, unspecified; J44.9 Chronic obstructive pulmonary disease, unspecified; E78.5 Hyperlipidemia, unspecified; E03.9 Hypothyroidism, unspecified; K21.9 Gastro-esophageal reflux disease without esophagitis; F17.210 Nicotine dependence, cigarettes, uncomplicated; Z98.890 Other specified postprocedural states; Z79.84 Long term (current) use of oral hypoglycemic drugs; Z79.82 Long term (current) use of aspirin; Z79.4 Long term (current) use of insulin; Z79.899 Other long term (current) drug therapy; X08.8XXD Exposure to other specified smoke, fire and flames, subsequent encounter ==

== ENCOUNTER → 2025-02-12 | Outpatient (CLI) | payer OTHER | END | disposition home or self-care (01) | LOC: WOUNDCARE 00:57 | PROVIDERS: ATTEND Nurse Practitioner Family | DX: E11.621 Type 2 diabetes mellitus with foot ulcer (principal); L97.411 Non-pressure chronic ulcer of right heel and midfoot limited to breakdown of skin; T25.221D Burn of second degree of right foot, subsequent encounter; T31.0 Burns involving less than 10% of body surface; I11.0 Hypertensive heart disease with heart failure; I50.9 Heart failure, unspecified; E11.40 Type 2 diabetes mellitus with diabetic neuropathy, unspecified; J44.9 Chronic obstructive pulmonary disease, unspecified; E78.5 Hyperlipidemia, unspecified; E03.9 Hypothyroidism, unspecified; K21.9 Gastro-esophageal reflux disease without esophagitis; F17.210 Nicotine dependence, cigarettes, uncomplicated; Z98.890 Other specified postprocedural states; Z79.84 Long term (current) use of oral hypoglycemic drugs; Z79.82 Long term (current) use of aspirin; Z79.4 Long term (current) use of insulin; Z79.899 Other long term (current) drug therapy; X08.8XXD Exposure to other specified smoke, fire and flames, subsequent encounter ==

== ENCOUNTER → 2025-02-18 | Outpatient (CLI) | payer OTHER | END | disposition home or self-care (01) | LOC: WOUNDCARE 01:56 | PROVIDERS: ATTEND Nurse Practitioner Family | DX: E11.621 Type 2 diabetes mellitus with foot ulcer (principal); L97.412 Non-pressure chronic ulcer of right heel and midfoot with fat layer exposed; T25.221D Burn of second degree of right foot, subsequent encounter; T31.0 Burns involving less than 10% of body surface; E11.40 Type 2 diabetes mellitus with diabetic neuropathy, unspecified; E03.9 Hypothyroidism, unspecified; I50.9 Heart failure, unspecified; G60.9 Hereditary and idiopathic neuropathy, unspecified; K21.9 Gastro-esophageal reflux disease without esophagitis; J44.9 Chronic obstructive pulmonary disease, unspecified; F17.290 Nicotine dependence, other tobacco product, uncomplicated; Z98.890 Other specified postprocedural states; Z79.84 Long term (current) use of oral hypoglycemic drugs; Z79.82 Long term (current) use of aspirin; Z79.4 Long term (current) use of insulin; Z79.899 Other long term (current) drug therapy; X08.8XXD Exposure to other specified smoke, fire and flames, subsequent encounter ==

== ENCOUNTER → 2025-02-24 | Outpatient (CLI) | payer OTHER | END | disposition home or self-care (01) | LOC: WOUNDCARE 01:17 | PROVIDERS: ATTEND Nurse Practitioner Family | DX: E11.621 Type 2 diabetes mellitus with foot ulcer (principal); L97.412 Non-pressure chronic ulcer of right heel and midfoot with fat layer exposed; T25.221D Burn of second degree of right foot, subsequent encounter; T31.0 Burns involving less than 10% of body surface; I11.0 Hypertensive heart disease with heart failure; I50.9 Heart failure, unspecified; G60.9 Hereditary and idiopathic neuropathy, unspecified; E03.9 Hypothyroidism, unspecified; E78.5 Hyperlipidemia, unspecified; K21.9 Gastro-esophageal reflux disease without esophagitis; J44.9 Chronic obstructive pulmonary disease, unspecified; F17.210 Nicotine dependence, cigarettes, uncomplicated; Z98.890 Other specified postprocedural states; Z79.84 Long term (current) use of oral hypoglycemic drugs; Z79.82 Long term (current) use of aspirin; Z79.4 Long term (current) use of insulin; Z79.899 Other long term (current) drug therapy; X08.8XXD Exposure to other specified smoke, fire and flames, subsequent encounter ==

== ENCOUNTER → 2025-03-04 | Outpatient (CLI) | payer OTHER | END | disposition home or self-care (01) | LOC: WOUNDCARE 03:40 | PROVIDERS: ATTEND Nurse Practitioner Family | DX: E11.621 Type 2 diabetes mellitus with foot ulcer (principal); L97.412 Non-pressure chronic ulcer of right heel and midfoot with fat layer exposed; T25.221D Burn of second degree of right foot, subsequent encounter; T31.0 Burns involving less than 10% of body surface; I11.0 Hypertensive heart disease with heart failure; I50.9 Heart failure, unspecified; G60.9 Hereditary and idiopathic neuropathy, unspecified; E03.9 Hypothyroidism, unspecified; K21.9 Gastro-esophageal reflux disease without esophagitis; J44.9 Chronic obstructive pulmonary disease, unspecified; F17.210 Nicotine dependence, cigarettes, uncomplicated; Z98.890 Other specified postprocedural states; Z79.4 Long term (current) use of insulin; Z79.84 Long term (current) use of oral hypoglycemic drugs; Z79.82 Long term (current) use of aspirin; Z79.899 Other long term (current) drug therapy; X08.8XXD Exposure to other specified smoke, fire and flames, subsequent encounter ==

== ENCOUNTER → 2025-03-12 | Outpatient (CLI) | payer OTHER | END | disposition home or self-care (01) | LOC: WOUNDCARE 02:04 | PROVIDERS: ATTEND Nurse Practitioner Family | DX: E11.621 Type 2 diabetes mellitus with foot ulcer (principal); L97.412 Non-pressure chronic ulcer of right heel and midfoot with fat layer exposed; T25.221D Burn of second degree of right foot, subsequent encounter; T31.0 Burns involving less than 10% of body surface; R60.9 Edema, unspecified; L84 Corns and callosities; I11.0 Hypertensive heart disease with heart failure; I50.9 Heart failure, unspecified; E11.40 Type 2 diabetes mellitus with diabetic neuropathy, unspecified; E03.9 Hypothyroidism, unspecified; E78.5 Hyperlipidemia, unspecified; K21.9 Gastro-esophageal reflux disease without esophagitis; J44.9 Chronic obstructive pulmonary disease, unspecified; F17.210 Nicotine dependence, cigarettes, uncomplicated; Z98.890 Other specified postprocedural states; Z79.4 Long term (current) use of insulin; Z79.82 Long term (current) use of aspirin; Z79.84 Long term (current) use of oral hypoglycemic drugs; Z79.899 Other long term (current) drug therapy; X08.8XXD Exposure to other specified smoke, fire and flames, subsequent encounter ==

== ENCOUNTER → 2025-03-18 | Outpatient (CLI) | payer OTHER | END | disposition home or self-care (01) | LOC: WOUNDCARE 02:06 | PROVIDERS: ATTEND Nurse Practitioner Family | DX: E11.621 Type 2 diabetes mellitus with foot ulcer (principal); L97.412 Non-pressure chronic ulcer of right heel and midfoot with fat layer exposed; T25.221D Burn of second degree of right foot, subsequent encounter; T31.0 Burns involving less than 10% of body surface; E11.40 Type 2 diabetes mellitus with diabetic neuropathy, unspecified; I11.0 Hypertensive heart disease with heart failure; I50.9 Heart failure, unspecified; J44.9 Chronic obstructive pulmonary disease, unspecified; E03.9 Hypothyroidism, unspecified; K21.9 Gastro-esophageal reflux disease without esophagitis; G60.9 Hereditary and idiopathic neuropathy, unspecified; F17.210 Nicotine dependence, cigarettes, uncomplicated; Z98.890 Other specified postprocedural states; Z79.899 Other long term (current) drug therapy; Z79.84 Long term (current) use of oral hypoglycemic drugs; X08.8XXD Exposure to other specified smoke, fire and flames, subsequent encounter ==

== ENCOUNTER → 2025-03-27 | Outpatient (CLI) | payer OTHER | END | disposition home or self-care (01) | LOC: WOUNDCARE 00:58 | PROVIDERS: ATTEND Nurse Practitioner Family | DX: E11.621 Type 2 diabetes mellitus with foot ulcer (principal); L97.412 Non-pressure chronic ulcer of right heel and midfoot with fat layer exposed; S90.425A Blister (nonthermal), left lesser toe(s), initial encounter; S90.421A Blister (nonthermal), right great toe, initial encounter; T25.221A Burn of second degree of right foot, initial encounter; T31.0 Burns involving less than 10% of body surface; E11.40 Type 2 diabetes mellitus with diabetic neuropathy, unspecified; I50.9 Heart failure, unspecified; E03.9 Hypothyroidism, unspecified; E78.5 Hyperlipidemia, unspecified; G60.9 Hereditary and idiopathic neuropathy, unspecified; K21.9 Gastro-esophageal reflux disease without esophagitis; J44.9 Chronic obstructive pulmonary disease, unspecified; F17.210 Nicotine dependence, cigarettes, uncomplicated; Z79.82 Long term (current) use of aspirin; Z79.4 Long term (current) use of insulin; Z79.899 Other long term (current) drug therapy; Z98.890 Other specified postprocedural states; X58.XXXA Exposure to other specified factors, initial encounter; Y93.89 Activity, other specified; Y92.89 Other specified places as the place of occurrence of the external cause; Y99.8 Other external cause status; X08.8XXA Exposure to other specified smoke, fire and flames, initial encounter ==

== ENCOUNTER → 2025-04-01 | Outpatient (CLI) | payer OTHER | END | disposition home or self-care (01) | LOC: WOUNDCARE 01:57 | PROVIDERS: ATTEND Nurse Practitioner Family | DX: E11.621 Type 2 diabetes mellitus with foot ulcer (principal); L97.411 Non-pressure chronic ulcer of right heel and midfoot limited to breakdown of skin; T25.221D Burn of second degree of right foot, subsequent encounter; T31.0 Burns involving less than 10% of body surface; S90.421D Blister (nonthermal), right great toe, subsequent encounter; S90.425D Blister (nonthermal), left lesser toe(s), subsequent encounter; S90.424D Blister (nonthermal), right lesser toe(s), subsequent encounter; L84 Corns and callosities; R60.0 Localized edema; E11.40 Type 2 diabetes mellitus with diabetic neuropathy, unspecified; I11.0 Hypertensive heart disease with heart failure; I50.9 Heart failure, unspecified; J44.9 Chronic obstructive pulmonary disease, unspecified; E78.5 Hyperlipidemia, unspecified; E03.9 Hypothyroidism, unspecified; K21.9 Gastro-esophageal reflux disease without esophagitis; F17.210 Nicotine dependence, cigarettes, uncomplicated; Z98.890 Other specified postprocedural states; Z79.84 Long term (current) use of oral hypoglycemic drugs; Z79.82 Long term (current) use of aspirin; Z79.4 Long term (current) use of insulin; Z79.899 Other long term (current) drug therapy; X58.XXXD Exposure to other specified factors, subsequent encounter; X08.8XXD Exposure to other specified smoke, fire and flames, subsequent encounter ==

== ENCOUNTER → 2025-04-08 | Outpatient (CLI) | payer OTHER | END | disposition home or self-care (01) | LOC: WOUNDCARE 02:27 | PROVIDERS: ATTEND Nurse Practitioner Family | DX: E11.621 Type 2 diabetes mellitus with foot ulcer (principal); L97.412 Non-pressure chronic ulcer of right heel and midfoot with fat layer exposed; S90.425D Blister (nonthermal), left lesser toe(s), subsequent encounter; S90.421D Blister (nonthermal), right great toe, subsequent encounter; S90.424D Blister (nonthermal), right lesser toe(s), subsequent encounter; T25.221D Burn of second degree of right foot, subsequent encounter; T31.0 Burns involving less than 10% of body surface; E11.40 Type 2 diabetes mellitus with diabetic neuropathy, unspecified; I11.0 Hypertensive heart disease with heart failure; I50.9 Heart failure, unspecified; J44.9 Chronic obstructive pulmonary disease, unspecified; E78.5 Hyperlipidemia, unspecified; E03.9 Hypothyroidism, unspecified; K21.9 Gastro-esophageal reflux disease without esophagitis; F17.210 Nicotine dependence, cigarettes, uncomplicated; Z98.890 Other specified postprocedural states; Z79.84 Long term (current) use of oral hypoglycemic drugs; Z79.82 Long term (current) use of aspirin; Z79.4 Long term (current) use of insulin; Z79.899 Other long term (current) drug therapy; X58.XXXD Exposure to other specified factors, subsequent encounter; X08.8XXD Exposure to other specified smoke, fire and flames, subsequent encounter ==

== ENCOUNTER → 2025-04-23 | Outpatient (CLI) | payer OTHER | END | disposition home or self-care (01) | LOC: WOUNDCARE 01:10 | PROVIDERS: ATTEND Nurse Practitioner Family | DX: E11.621 Type 2 diabetes mellitus with foot ulcer (principal); L97.412 Non-pressure chronic ulcer of right heel and midfoot with fat layer exposed; T25.221D Burn of second degree of right foot, subsequent encounter; T31.0 Burns involving less than 10% of body surface; R60.9 Edema, unspecified; L84 Corns and callosities; E11.40 Type 2 diabetes mellitus with diabetic neuropathy, unspecified; I11.0 Hypertensive heart disease with heart failure; I50.9 Heart failure, unspecified; J44.9 Chronic obstructive pulmonary disease, unspecified; E78.5 Hyperlipidemia, unspecified; E03.9 Hypothyroidism, unspecified; K21.9 Gastro-esophageal reflux disease without esophagitis; F17.210 Nicotine dependence, cigarettes, uncomplicated; Z98.890 Other specified postprocedural states; Z79.84 Long term (current) use of oral hypoglycemic drugs; Z79.82 Long term (current) use of aspirin; Z79.899 Other long term (current) drug therapy; X08.8XXD Exposure to other specified smoke, fire and flames, subsequent encounter ==

== ENCOUNTER → 2025-04-29 | Outpatient (CLI) | payer OTHER | END | disposition home or self-care (01) | LOC: WOUNDCARE 03:08 | PROVIDERS: ATTEND Nurse Practitioner Family | DX: E11.621 Type 2 diabetes mellitus with foot ulcer (principal); L97.412 Non-pressure chronic ulcer of right heel and midfoot with fat layer exposed; T25.221D Burn of second degree of right foot, subsequent encounter; T31.0 Burns involving less than 10% of body surface; E11.40 Type 2 diabetes mellitus with diabetic neuropathy, unspecified; I11.0 Hypertensive heart disease with heart failure; I50.9 Heart failure, unspecified; G60.9 Hereditary and idiopathic neuropathy, unspecified; E03.9 Hypothyroidism, unspecified; K21.9 Gastro-esophageal reflux disease without esophagitis; J44.9 Chronic obstructive pulmonary disease, unspecified; F17.210 Nicotine dependence, cigarettes, uncomplicated; Z98.890 Other specified postprocedural states; Z79.84 Long term (current) use of oral hypoglycemic drugs; Z79.4 Long term (current) use of insulin; Z79.82 Long term (current) use of aspirin; Z79.899 Other long term (current) drug therapy; X08.8XXD Exposure to other specified smoke, fire and flames, subsequent encounter ==

== ENCOUNTER → 2025-05-06 | Outpatient (CLI) | payer OTHER | END | disposition home or self-care (01) | LOC: WOUNDCARE 02:09 | PROVIDERS: ATTEND Nurse Practitioner Family | DX: E11.621 Type 2 diabetes mellitus with foot ulcer (principal); L97.412 Non-pressure chronic ulcer of right heel and midfoot with fat layer exposed; T25.221D Burn of second degree of right foot, subsequent encounter; T31.0 Burns involving less than 10% of body surface; R60.9 Edema, unspecified; L84 Corns and callosities; E11.40 Type 2 diabetes mellitus with diabetic neuropathy, unspecified; I11.0 Hypertensive heart disease with heart failure; I50.9 Heart failure, unspecified; E03.9 Hypothyroidism, unspecified; E78.5 Hyperlipidemia, unspecified; K21.9 Gastro-esophageal reflux disease without esophagitis; J44.9 Chronic obstructive pulmonary disease, unspecified; F17.210 Nicotine dependence, cigarettes, uncomplicated; Z98.890 Other specified postprocedural states; Z79.82 Long term (current) use of aspirin; Z79.84 Long term (current) use of oral hypoglycemic drugs; Z79.4 Long term (current) use of insulin; Z79.899 Other long term (current) drug therapy; X08.8XXD Exposure to other specified smoke, fire and flames, subsequent encounter ==

== ENCOUNTER → 2025-05-23 | Outpatient (CLI) | payer OTHER | LOC: WOUNDCARE 03:16 | PROVIDERS: ATTEND Nurse Practitioner Family | DX: E11.621 Type 2 diabetes mellitus with foot ulcer (principal); L97.412 Non-pressure chronic ulcer of right heel and midfoot with fat layer exposed; T25.221D Burn of second degree of right foot, subsequent encounter; T31.0 Burns involving less than 10% of body surface; R60.9 Edema, unspecified; L84 Corns and callosities; E11.40 Type 2 diabetes mellitus with diabetic neuropathy, unspecified; I11.0 Hypertensive heart disease with heart failure; I50.9 Heart failure, unspecified; J44.9 Chronic obstructive pulmonary disease, unspecified; E78.5 Hyperlipidemia, unspecified; E03.9 Hypothyroidism, unspecified; G60.9 Hereditary and idiopathic neuropathy, unspecified; K21.9 Gastro-esophageal reflux disease without esophagitis; F17.210 Nicotine dependence, cigarettes, uncomplicated; Z98.890 Other specified postprocedural states; Z79.84 Long term (current) use of oral hypoglycemic drugs; Z79.82 Long term (current) use of aspirin; Z79.4 Long term (current) use of insulin; Z79.899 Other long term (current) drug therapy; X08.8XXD Exposure to other specified smoke, fire and flames, subsequent encounter ==

== ENCOUNTER → 2025-06-17 | Outpatient (CLI) | payer OTHER | END | disposition home or self-care (01) | LOC: WOUNDCARE 02:38 | PROVIDERS: ATTEND Nurse Practitioner Family | DX: E11.621 Type 2 diabetes mellitus with foot ulcer (principal); L97.418 Non-pressure chronic ulcer of right heel and midfoot with other specified severity; T25.221D Burn of second degree of right foot, subsequent encounter; T31.0 Burns involving less than 10% of body surface; L84 Corns and callosities; E11.40 Type 2 diabetes mellitus with diabetic neuropathy, unspecified; I11.0 Hypertensive heart disease with heart failure; I50.9 Heart failure, unspecified; J44.9 Chronic obstructive pulmonary disease, unspecified; E78.5 Hyperlipidemia, unspecified; E03.9 Hypothyroidism, unspecified; K21.9 Gastro-esophageal reflux disease without esophagitis; L03.90 Cellulitis, unspecified; F17.210 Nicotine dependence, cigarettes, uncomplicated; Z98.890 Other specified postprocedural states; Z79.84 Long term (current) use of oral hypoglycemic drugs; Z79.82 Long term (current) use of aspirin; Z79.4 Long term (current) use of insulin; Z79.899 Other long term (current) drug therapy; X08.8XXD Exposure to other specified smoke, fire and flames, subsequent encounter ==

== ENCOUNTER → 2025-09-04 | Outpatient (CLI) | payer OTHER | END | disposition home or self-care (01) | LOC: WOUNDCARE 08:12 | PROVIDERS: ATTEND Nurse Practitioner Family | DX: E11.621 Type 2 diabetes mellitus with foot ulcer (principal); L97.422 Non-pressure chronic ulcer of left heel and midfoot with fat layer exposed; L97.511 Non-pressure chronic ulcer of other part of right foot limited to breakdown of skin; E78.5 Hyperlipidemia, unspecified; E03.9 Hypothyroidism, unspecified; I50.9 Heart failure, unspecified; I11.0 Hypertensive heart disease with heart failure; E11.40 Type 2 diabetes mellitus with diabetic neuropathy, unspecified; J44.9 Chronic obstructive pulmonary disease, unspecified; F17.210 Nicotine dependence, cigarettes, uncomplicated ==

== ENCOUNTER → 2025-09-09 | Outpatient (CLI) | payer OTHER | END | disposition home or self-care (01) | LOC: WOUNDCARE 03:15 | PROVIDERS: ATTEND Nurse Practitioner Family | DX: E11.621 Type 2 diabetes mellitus with foot ulcer (principal); L97.521 Non-pressure chronic ulcer of other part of left foot limited to breakdown of skin; L97.511 Non-pressure chronic ulcer of other part of right foot limited to breakdown of skin; E11.40 Type 2 diabetes mellitus with diabetic neuropathy, unspecified; E78.5 Hyperlipidemia, unspecified; E03.9 Hypothyroidism, unspecified; J44.9 Chronic obstructive pulmonary disease, unspecified; I11.0 Hypertensive heart disease with heart failure; I50.9 Heart failure, unspecified; G60.9 Hereditary and idiopathic neuropathy, unspecified; F17.200 Nicotine dependence, unspecified, uncomplicated ==

== ENCOUNTER → 2025-09-16 | Outpatient (CLI) | payer OTHER | END | disposition home or self-care (01) | LOC: WOUNDCARE 03:59 | PROVIDERS: ATTEND Nurse Practitioner Family | DX: E11.621 Type 2 diabetes mellitus with foot ulcer (principal); L97.522 Non-pressure chronic ulcer of other part of left foot with fat layer exposed; L97.512 Non-pressure chronic ulcer of other part of right foot with fat layer exposed; R60.9 Edema, unspecified; E11.40 Type 2 diabetes mellitus with diabetic neuropathy, unspecified; I11.0 Hypertensive heart disease with heart failure; I50.9 Heart failure, unspecified; E78.5 Hyperlipidemia, unspecified; J44.9 Chronic obstructive pulmonary disease, unspecified; F17.210 Nicotine dependence, cigarettes, uncomplicated; Z98.890 Other specified postprocedural states; Z79.4 Long term (current) use of insulin; Z79.82 Long term (current) use of aspirin; Z79.84 Long term (current) use of oral hypoglycemic drugs; Z79.899 Other long term (current) drug therapy ==

== ENCOUNTER → 2025-09-23 | Outpatient (CLI) | payer OTHER | END | disposition home or self-care (01) | LOC: WOUNDCARE 02:55 | PROVIDERS: ATTEND Nurse Practitioner Family | DX: E11.621 Type 2 diabetes mellitus with foot ulcer (principal); L97.422 Non-pressure chronic ulcer of left heel and midfoot with fat layer exposed; L97.512 Non-pressure chronic ulcer of other part of right foot with fat layer exposed; E11.51 Type 2 diabetes mellitus with diabetic peripheral angiopathy without gangrene; I11.0 Hypertensive heart disease with heart failure; I50.9 Heart failure, unspecified; E03.9 Hypothyroidism, unspecified; E78.5 Hyperlipidemia, unspecified; J44.9 Chronic obstructive pulmonary disease, unspecified; F17.210 Nicotine dependence, cigarettes, uncomplicated; Z98.890 Other specified postprocedural states; Z79.84 Long term (current) use of oral hypoglycemic drugs; Z79.82 Long term (current) use of aspirin; Z79.4 Long term (current) use of insulin; Z79.899 Other long term (current) drug therapy ==

== ENCOUNTER → 2025-09-30 | Outpatient (CLI) | payer OTHER | END | disposition home or self-care (01) | LOC: WOUNDCARE 01:13 | PROVIDERS: ATTEND Nurse Practitioner Family | DX: E11.621 Type 2 diabetes mellitus with foot ulcer (principal); L97.422 Non-pressure chronic ulcer of left heel and midfoot with fat layer exposed; L97.512 Non-pressure chronic ulcer of other part of right foot with fat layer exposed; E11.40 Type 2 diabetes mellitus with diabetic neuropathy, unspecified; G60.9 Hereditary and idiopathic neuropathy, unspecified; E78.5 Hyperlipidemia, unspecified; E03.9 Hypothyroidism, unspecified; L84 Corns and callosities; I11.0 Hypertensive heart disease with heart failure; I50.9 Heart failure, unspecified; J44.9 Chronic obstructive pulmonary disease, unspecified; F17.210 Nicotine dependence, cigarettes, uncomplicated ==

== ENCOUNTER → 2025-10-08 | Outpatient (CLI) | payer OTHER | END | disposition home or self-care (01) | LOC: WOUNDCARE 02:13 | PROVIDERS: ATTEND Nurse Practitioner Family | DX: E11.621 Type 2 diabetes mellitus with foot ulcer (principal); L97.422 Non-pressure chronic ulcer of left heel and midfoot with fat layer exposed; E11.42 Type 2 diabetes mellitus with diabetic polyneuropathy; G60.9 Hereditary and idiopathic neuropathy, unspecified; E78.5 Hyperlipidemia, unspecified; E03.9 Hypothyroidism, unspecified; I11.0 Hypertensive heart disease with heart failure; I50.9 Heart failure, unspecified; J44.9 Chronic obstructive pulmonary disease, unspecified; F17.210 Nicotine dependence, cigarettes, uncomplicated ==

== ENCOUNTER → 2025-10-17 | Outpatient (CLI) | payer OTHER | END | disposition home or self-care (01) | LOC: WOUNDCARE 00:46 | PROVIDERS: ATTEND Nurse Practitioner Family | DX: E11.621 Type 2 diabetes mellitus with foot ulcer (principal); L97.422 Non-pressure chronic ulcer of left heel and midfoot with fat layer exposed; G60.9 Hereditary and idiopathic neuropathy, unspecified; L60.2 Onychogryphosis; E78.5 Hyperlipidemia, unspecified; E03.9 Hypothyroidism, unspecified; I11.0 Hypertensive heart disease with heart failure; M79.671 Pain in right foot; I50.9 Heart failure, unspecified; J44.9 Chronic obstructive pulmonary disease, unspecified; F17.210 Nicotine dependence, cigarettes, uncomplicated ==

== ENCOUNTER → 2025-10-29 | Outpatient (CLI) | payer OTHER | END | disposition home or self-care (01) | LOC: WOUNDCARE 01:27 | PROVIDERS: ATTEND Nurse Practitioner Family | DX: E11.621 Type 2 diabetes mellitus with foot ulcer (principal); L97.422 Non-pressure chronic ulcer of left heel and midfoot with fat layer exposed; L84 Corns and callosities; G60.9 Hereditary and idiopathic neuropathy, unspecified; L60.2 Onychogryphosis; E78.5 Hyperlipidemia, unspecified; E03.9 Hypothyroidism, unspecified; J44.9 Chronic obstructive pulmonary disease, unspecified; I11.0 Hypertensive heart disease with heart failure; I50.9 Heart failure, unspecified; F17.210 Nicotine dependence, cigarettes, uncomplicated; F17.200 Nicotine dependence, unspecified, uncomplicated ==

== ENCOUNTER → 2025-11-04 | Outpatient (CLI) | payer OTHER | END | disposition home or self-care (01) | LOC: WOUNDCARE 03:08 | PROVIDERS: ATTEND Nurse Practitioner Family | DX: E11.621 Type 2 diabetes mellitus with foot ulcer (principal); L97.422 Non-pressure chronic ulcer of left heel and midfoot with fat layer exposed; L60.2 Onychogryphosis; E11.40 Type 2 diabetes mellitus with diabetic neuropathy, unspecified; G60.9 Hereditary and idiopathic neuropathy, unspecified; E78.5 Hyperlipidemia, unspecified; E03.9 Hypothyroidism, unspecified; J44.9 Chronic obstructive pulmonary disease, unspecified; I11.0 Hypertensive heart disease with heart failure; I50.9 Heart failure, unspecified; F17.210 Nicotine dependence, cigarettes, uncomplicated ==

== ENCOUNTER → 2025-11-17 | Outpatient (CLI) | payer OTHER | END | disposition home or self-care (01) | LOC: WOUNDCARE 02:50 | PROVIDERS: ATTEND Nurse Practitioner Family | DX: E11.621 Type 2 diabetes mellitus with foot ulcer (principal); L97.422 Non-pressure chronic ulcer of left heel and midfoot with fat layer exposed; E11.40 Type 2 diabetes mellitus with diabetic neuropathy, unspecified; I11.0 Hypertensive heart disease with heart failure; I50.9 Heart failure, unspecified; J44.9 Chronic obstructive pulmonary disease, unspecified; L60.2 Onychogryphosis; E03.9 Hypothyroidism, unspecified; F17.210 Nicotine dependence, cigarettes, uncomplicated; Z98.890 Other specified postprocedural states; Z79.84 Long term (current) use of oral hypoglycemic drugs; Z79.82 Long term (current) use of aspirin; Z79.899 Other long term (current) drug therapy ==